=== PATIENT | female | born 1945 | race Caucasian/White ===

== ENCOUNTER 2021-03-26 14:03 | Outpatient (REF) | payer MEDICARE, SELFPAY ==
--- NOTE | ~2021-03-26 | MM_ITS ---
EXAMINATION: BONE DENSITOMETRY CLINICAL INDICATION: Screening for osteoporosis. COMPARISON: Baseline BD dated 09/09/2017. Radiographs lumbar spine 03/13/2020. TECHNIQUE: Using a [email or web address] DXA System (software version: 13.1) manufactured by [employer], dual-energy x-ray absorptiometry was performed of the lumbar spine and left hip. The images are of good technical quality. Summary results are attached. FINDINGS: AP SPINE L2-L4 (excluding L1): The data of L1-L4 has been changed to exclude the L1 vertebral body, because degenerative changes at this level may cause overestimation of lumbar spine density. Current: BMD 0.878 g/cm2, Z-score -0.7, T-score -2.7, osteoporosis, 8.5% decrease from baseline (<5% change is not significant). Baseline: BMD 0.960 g/cm2. LEFT FEMUR, NECK: Current: BMD 0.753 g/cm2, Z-score 0.1, T-score -2.1, osteopenia. Baseline: BMD 0.767 g/cm2. LEFT FEMUR, TOTAL: Current: BMD 0.793 g/cm2, Z-score 0.3, T-score -1.7, osteopenia, 4.0% decrease from baseline (<5% change is not significant). Baseline: BMD 0.826 g/cm2. IDENTIFIED RISK FACTORS: Rheumatoid arthritis, osteoporosis, menopause, hysterectomy. HISTORY OF FRACTURE: None listed. MEDICATIONS: Calcium supplements or multivitamin, vitamin D. MM/XR DEXA axial skeleton IMPRESSION: 1. DIAGNOSIS: Osteoporosis based on the lowest T-score value of -2.7 in the lumbar spine applying World Health Organization criteria. 2. 10-YEAR FRACTURE RISK PREDICTION, FRAX: Major osteoporotic fracture (clinical spine, forearm, hip or shoulder) 18.9%. Hip fracture 6.1%. 3. Treatment Recommendations: NOF guidelines recommend consideration for treatment in postmenopausal women and men age 50 and older presenting with the following: -A hip or vertebral (clinical or morphometric) fracture. -T-score less than or equal to -2.5 at the femoral neck or spine after appropriate evaluation to exclude secondary causes. -Low bone mass at the hip or spine and a 10-year fracture probability by FRAX of greater than or equal to 3% for hip fracture or greater than or equal to 20% for major osteoporotic fracture based on the [place] adapted WHO algorithm. 4. Other Recommendations: All treatment decisions require clinical judgment and consideration of individual patient factors, including patient preferences, comorbidities, previous drug use, risk factors not captured in the FRAX model (e.g. frailty, falls, vitamin D deficiency, increased bone turnover, interval significant decline in bone density) and possible under or overestimation of fracture risk by FRAX. Additional medical evaluation for secondary cause of low bone mineral density may be appropriate. FUTURE SCAN RECOMMENDATION: People with diagnosed cases of osteoporosis or at high risk for fracture should have regular bone mineral density tests. For patients eligible for Medicare, routine testing is allowed once every 2 years. The testing frequency can be increased to one year for patients who have rapidly progressing disease, those who are receiving or discontinuing medical therapy to restore bone mass, or have additional risk factors.
== END 2021-03-26 14:04 | disposition home or self-care (01) ==
LOC: HO.MAMMO 14:03
PROVIDERS: Visit Provider Internal Medicine Rheumatology
DX: Z13.820 Encounter for screening for osteoporosis (principal); M81.0 Age-related osteoporosis without current pathological fracture; M06.9 Rheumatoid arthritis, unspecified; Z78.0 Asymptomatic menopausal state; Z98.890 Other specified postprocedural states
CPT/HCPCS: 77080

== ENCOUNTER 2021-05-08 07:39 | Outpatient (REF) | payer MEDICARE, SELFPAY ==
--- NOTE | ~2021-05-08 | MM_ITS ---
EXAMINATION: MM SCREENING DIGITAL BREAST TOMOSYNTHESIS, BILATERAL CLINICAL INFORMATION: Screening. Asymptomatic. The lifetime risk of breast cancer based on the Tyrer-Cuzick Model is 3%. COMPARISON: Mammography: 05/02/2020, 12/22/2018, 12/02/2017 TECHNIQUE: Digital breast tomosynthesis is performed in both the craniocaudal and mediolateral oblique views along with computer-aided detection (CAD). Synthesized 2D images are generated from the tomosynthesis. Additional left exaggerated CC view is provided. FINDINGS: There are scattered areas of fibroglandular density (ACR BI-RADS breast composition Category b). There are no significant masses, abnormal calcifications, or other abnormalities. There is a dermal lesion again seen overlying the posterior lateral left breast. There are benign bilateral vascular calcifications. The axilla are unremarkable. MM/MM tomosynthesis screening BI IMPRESSION: No mammographic evidence of malignancy. ASSESSMENT: BI-RADS 2: Benign RECOMMENDATION: Routine annual mammography screening. This patient's information was entered into a reminder system with a target due date for their next mammogram.
== END 2021-05-08 07:40 | disposition home or self-care (01) ==
LOC: HO.MAMMO 07:39
PROVIDERS: PCP Internal Medicine; Visit Provider Internal Medicine
DX: Z12.31 Encounter for screening mammogram for malignant neoplasm of breast (principal)
CPT/HCPCS: 77063; 77067

== ENCOUNTER 2022-05-11 07:46 | Outpatient (REF) | payer MEDICARE, SELFPAY ==
--- NOTE | ~2022-05-11 | MM_ITS ---
EXAMINATION: MM SCREENING DIGITAL BREAST TOMOSYNTHESIS, BILATERAL CLINICAL INFORMATION: Screening. Asymptomatic. The lifetime risk of breast cancer based on the Tyrer-Cuzick Model is 3%. COMPARISON: Mammography: 05/08/2021, 05/02/2020, 12/22/2018 TECHNIQUE: Digital breast tomosynthesis is performed in both the craniocaudal and mediolateral oblique views along with computer-aided detection (CAD). Synthesized 2D images are generated from the tomosynthesis. FINDINGS: There are scattered areas of fibroglandular density (ACR BI-RADS breast composition Category b). There are no significant masses, abnormal calcifications, or other abnormalities. Parenchymal pattern is similar to prior studies. MM/MM tomosynthesis screening BI IMPRESSION: No mammographic evidence of malignancy. ASSESSMENT: BI-RADS 1: Negative RECOMMENDATION: Routine annual mammography screening. This patient's information was entered into a reminder system with a target due date for their next mammogram.
== END 2022-05-11 07:47 | disposition home or self-care (01) ==
LOC: HO.MAMMO 07:46
PROVIDERS: PCP Internal Medicine; Visit Provider Internal Medicine
DX: Z12.31 Encounter for screening mammogram for malignant neoplasm of breast (principal)
CPT/HCPCS: 77063; 77067

== ENCOUNTER 2022-10-14 15:15 | Outpatient (REF) | payer MEDICARE, SELFPAY ==
[2022-10-14 18:06] LABS: Appearance Urine Clear; Color Urine Yellow; Glucose Urine UA Negative (Negative); Leukocyte Esterase Urine Small (1+) (Negative); Nitrite Urine Negative (Negative); PH 5.5 (5.0-9.0); UMIC TRIGGER UACC YES; Urine Blood Negative (Negative); Urine Ketones Negative (Negative); Urine Protein Negative (Neg-Trace)
[2022-10-14 18:49] LABS: Bacteria Urine None Seen (None Seen); Hyaline Casts Urine 0-2 /LPF (0-2); RBC Urine 0-2 /HPF (0-2); UACC Culture Trigger YES; WBC Urine 0-5 /HPF (0-5)
== END 2022-10-14 15:16 | disposition home or self-care (01) ==
LOC: HO.MANLDS 15:15
PROVIDERS: Visit Provider Internal Medicine
DX: N39.0 Urinary tract infection, site not specified (principal)
CPT/HCPCS: 81001; 87086

== ENCOUNTER 2023-05-17 07:41 | Outpatient (REF) | payer MEDICARE, SELFPAY ==
--- NOTE | ~2023-05-17 | MM_ITS ---
EXAMINATION: MM SCREENING DIGITAL BREAST TOMOSYNTHESIS, BILATERAL CLINICAL INFORMATION: Screening. Asymptomatic. The lifetime risk of breast cancer based on the Tyrer-Cuzick Model is 2.2%. COMPARISON: Mammography: 05/11/2022, and dating back to 2013. TECHNIQUE: Digital breast tomosynthesis is performed in both the craniocaudal and mediolateral oblique views along with computer-aided detection (CAD). Synthesized 2D images are generated from the tomosynthesis. In addition, bilateral 3-D full-field digital CC nipple in profile views were performed. FINDINGS: There are scattered areas of fibroglandular density (ACR BI-RADS breast composition Category b). There are no suspicious masses, suspicious grouped calcifications, or areas of architectural distortion. The parenchymal pattern is stable from prior exams. There are benign vascular calcifications in both breasts. There is a stable skin lesion in the far lateral posterior left breast. MM/MM tomosynthesis screening BI IMPRESSION: No mammographic evidence of malignancy. Stable benign findings. ASSESSMENT: BI-RADS BI-RADS 2 - Benign Findings RECOMMENDATION: Routine annual mammography screening. 1 year F/U This examination should not preclude the clinical evaluation of a suspicious palpable abnormality. This patient's information was entered into a reminder system with a target due date for their next mammogram.
== END 2023-05-17 07:42 | disposition home or self-care (01) ==
LOC: HO.MAMMO 07:41
PROVIDERS: PCP Internal Medicine; Visit Provider Internal Medicine
DX: Z12.31 Encounter for screening mammogram for malignant neoplasm of breast (principal)
CPT/HCPCS: 77063; 77067

== ENCOUNTER → 2023-05-17 08:15 | Outpatient (BNV) | payer MEDICARE, SELFPAY | PROVIDERS: PCP Internal Medicine; Visit Provider Radiology Diagnostic Radiology | DX: Z12.31 Encounter for screening mammogram for malignant neoplasm of breast (principal) | CPT/HCPCS: 77063; 77067 ==

== ENCOUNTER 2023-06-07 10:53 | Outpatient (REF) | payer MEDICARE, SELFPAY ==
[2023-06-07 12:56] LABS: MANUAL DIFF FLAG NO
[2023-06-07 13:30] LABS: Alanine Aminotransferase 13 U/L (0-31); Albumin Level 4.5 g/dL (3.5-5.0); Alkaline Phosphatase 71 U/L (39-117); Anion Gap 14 (12-20); Aspartate Amino Transferase 23 U/L (5-31); Bilirubin Total 0.3 mg/dL (0.0-1.0); Blood Urea Nitrogen 17 mg/dL (9-16); Calcium 9.7 mg/dL (8.4-10.2); Carbon Dioxide 29 mmol/L (22-29); Chloride 102 mmol/L (96-108); Estimated Glomerular Filt Rate > 60; Glucose Random 102 mg/dL (60-115); Potassium 4.8 mmol/L (3.3-5.1); Sodium 140 mmol/L (135-145)
[2023-06-07 13:55] LABS: Folate 19.4 ng/mL (> or = 4.0); Vitamin B12 966 pg/mL (200-900)
[2023-06-07 13:56] LABS: Basophils Absolute Auto 0.1 X10*3/uL (0.0-0.2); Basophils Percent Auto 0.7 % (0-2); Eosinophils Absolute Auto 0.1 X10*3/uL (0.0-0.4); Eosinophils Percent Auto 1.8 % (0-4); Hemoglobin 12.9 g/dl (12.0-16.0); Imm Gran Abs Auto 0.02 X10*3/uL (0.00-0.03); Imm Gran Pct Auto 0.3 % (0.0-0.4); Lymphocytes Absolute Auto 2.5 X10*3/uL (1.2-4.9); Lymphocytes Percent Auto 34.4 % (20-40); Mean Corpuscular HGB Conc 33.9 g/dl (31.0-35.0); Mean Corpuscular Hemoglobin 33.1 pg (27.0-33.0); Mean Corpuscular Volume 97.4 fL (80.0-98.0); Mean Platelet Volume 8.9 fL (9.4-12.3); Monocytes Absolute Auto 0.8 X10*3/uL (0.1-1.2); Monocytes Percent Auto 10.8 % (2-11); Neutrophils Absolute Auto 3.7 x10*3/uL (2.0-8.3); Platelet Count 356 X10*3/uL (160-400); Red Cell Distribution Width 12.5 % (11.0-16.0); White Blood Count 7.2 X10*3/uL (4.8-10.8)
== END 2023-06-07 10:54 | disposition home or self-care (01) ==
LOC: HO.MANLDS 10:53
PROVIDERS: Visit Provider Internal Medicine
DX: I10 Essential (primary) hypertension (principal); Z76.89 Persons encountering health services in other specified circumstances
CPT/HCPCS: 36415; 80053; 82607; 82746; 85025

== ENCOUNTER 2023-12-01 07:53 | Outpatient (REF) | payer MEDICARE, SELFPAY ==
[2023-12-01 13:49] LABS: Rheumatoid Factor < 13.0 IU/mL (<15.0)
[2023-12-01 13:58] LABS: C Reactive Protein < 0.10 mg/dL (< or = 0.50); Calcium 9.2 mg/dL (8.4-10.2); Uric Acid 4.7 mg/dL (2.4-5.7)
[2023-12-01 14:14] LABS: Free T4 (Free Thyroxine) 1.11 ng/dL (0.71-1.85); Thyroid Stimulating Hormone 1.09 uIU/mL (0.32-4.0)
[2023-12-01 14:22] LABS: Erythrocyte Sedimentation Rate 10 MM/HR (0-20)
[2023-12-07 12:29] LABS: ANA Pattern 2 Nuclear, Homogeneous; ANA Titer 2 1:40 titer; Anti Nuclear Antibody Pattern Nuclear, Nucleolar; Anti Nuclear Antibody Screen POSITIVE (NEGATIVE); Anti Nuclear Antibody Titer 1:40 titer
== END 2023-12-01 07:54 | disposition home or self-care (01) ==
LOC: HO.MANLDS 07:53
PROVIDERS: Visit Provider Physician Assistant
DX: M35.3 Polymyalgia rheumatica (principal); M25.59 Pain in other specified joint
CPT/HCPCS: 36415; 82310; 82550; 83970; 84439; 84443; 84550; 85652; 86038; 86039; 86140; 86431

== ENCOUNTER 2024-01-03 08:18 | Outpatient (REF) | payer MEDICARE, SELFPAY ==
[2024-01-03 13:37] LABS: MANUAL DIFF FLAG NO
[2024-01-03 13:43] LABS: Basophils Absolute Auto 0.1 X10*3/uL (0.0-0.2); Basophils Percent Auto 0.8 % (0-2); Eosinophils Absolute Auto 0.1 X10*3/uL (0.0-0.4); Eosinophils Percent Auto 1.1 % (0-4); Hematocrit 37.9 % (37.0-47.0); Hemoglobin 12.5 g/dl (12.0-16.0); Imm Gran Abs Auto 0.03 X10*3/uL (0.00-0.03); Imm Gran Pct Auto 0.3 % (0.0-0.4); Lymphocytes Percent Auto 21.5 % (20-40); Mean Corpuscular Hemoglobin 33.6 pg (27.0-33.0); Mean Corpuscular Volume 101.9 fL (80.0-98.0); Mean Platelet Volume 9.4 fL (9.4-12.3); Monocytes Absolute Auto 0.8 X10*3/uL (0.1-1.2); Monocytes Percent Auto 8.8 % (2-11); Neutrophils Absolute Auto 6.2 x10*3/uL (2.0-8.3); Neutrophils Percent Auto 67.5 % (45-73); Platelet Count 339 X10*3/uL (160-400); Red Blood Count 3.72 X10*6/uL (4.20-5.50); Red Cell Distribution Width 12.3 % (11.0-16.0); White Blood Count 9.2 X10*3/uL (4.8-10.8)
[2024-01-03 14:24] LABS: Erythrocyte Sedimentation Rate 28 MM/HR (0-20)
[2024-01-03 14:25] LABS: Rheumatoid Factor < 13.0 IU/mL (<15.0)
[2024-01-03 14:39] LABS: Alanine Aminotransferase 13 U/L (0-31); Albumin Level 4.4 g/dL (3.5-5.0); Alkaline Phosphatase 75 U/L (39-117); Anion Gap 11 (12-20); Aspartate Amino Transferase 24 U/L (5-31); Bilirubin Total 0.4 mg/dL (0.0-1.0); Blood Urea Nitrogen 21 mg/dL (9-16); C Reactive Protein 0.39 mg/dL (< or = 0.50); Calcium 9.9 mg/dL (8.4-10.2); Carbon Dioxide 30 mmol/L (22-29); Chloride 103 mmol/L (96-108); Estimated Glomerular Filt Rate > 60; Glucose Random 86 mg/dL (60-115); Potassium 4.9 mmol/L (3.3-5.1); Sodium 139 mmol/L (135-145); Total Protein 7.8 g/dL (6.5-8.0)
[2024-01-05 13:09] LABS: Anti Nuclear Antibody Screen NEGATIVE (NEGATIVE)
== END 2024-01-03 08:19 | disposition home or self-care (01) ==
LOC: HO.MANLDS 08:18
PROVIDERS: Visit Provider Physician Assistant
DX: M35.3 Polymyalgia rheumatica (principal)
CPT/HCPCS: 36415; 80053; 85025; 85652; 86038; 86140; 86431

== ENCOUNTER 2024-03-14 15:20 | Outpatient (REF) | payer MEDICARE, SELFPAY ==
[2024-03-14 17:28] LABS: Basophils Absolute Auto 0.1 X10*3/uL (0.0-0.2); Basophils Percent Auto 0.5 % (0-2); Eosinophils Absolute Auto 0.1 X10*3/uL (0.0-0.4); Eosinophils Percent Auto 0.8 % (0-4); Hematocrit 33.7 % (37.0-47.0); Hemoglobin 11.6 g/dl (12.0-16.0); Imm Gran Abs Auto 0.06 X10*3/uL (0.00-0.03); Imm Gran Pct Auto 0.6 % (0.0-0.4); Lymphocytes Absolute Auto 1.8 X10*3/uL (1.2-4.9); Lymphocytes Percent Auto 16.3 % (20-40); MANUAL DIFF FLAG SCAN; Mean Corpuscular HGB Conc 34.4 g/dl (31.0-35.0); Mean Corpuscular Hemoglobin 33.4 pg (27.0-33.0); Mean Corpuscular Volume 97.1 fL (80.0-98.0); Monocytes Absolute Auto 1.6 X10*3/uL (0.1-1.2); Monocytes Percent Auto 15.1 % (2-11); Neutrophils Absolute Auto 7.1 x10*3/uL (2.0-8.3); Neutrophils Percent Auto 66.7 % (45-73); Platelet Count 367 X10*3/uL (160-400); Red Blood Count 3.47 X10*6/uL (4.20-5.50); Red Cell Distribution Width 11.8 % (11.0-16.0); SCAN SMEAR FLAG 1; White Blood Count 10.7 X10*3/uL (4.8-10.8)
[2024-03-14 17:32] LABS: C Reactive Protein 17.81 mg/dL (< or = 0.50)
[2024-03-14 18:18] LABS: SLIDE REVIEW VERIFIED
[2024-03-15 22:14] LABS: Lyme Abs Screen <0.90 index
[2024-03-23 10:29] LABS: A. Phagocytophilum Ab IgG <1:64 (<1:64); A. Phagocytophilum Ab IgM <1:20 (<1:20); E. Chaffeensis Ab IgG <1:64 (<1:64); E. Chaffeensis Ab IgM <1:20 (<1:20)
== END 2024-03-14 15:21 | disposition home or self-care (01) ==
LOC: HO.MANLDS 15:20
PROVIDERS: Visit Provider Physician Assistant
DX: T14.8XXA Other injury of unspecified body region, initial encounter (principal); W57.XXXA Bitten or stung by nonvenomous insect and other nonvenomous arthropods, initial encounter; X58.XXXA Exposure to other specified factors, initial encounter; Y93.9 Activity, unspecified; Y92.9 Unspecified place or not applicable; Y99.9 Unspecified external cause status
CPT/HCPCS: 36415; 85025; 86140; 86617; 86618; 86666

== ENCOUNTER 2025-01-09 07:41 | Outpatient (REF) | payer MEDICARE, SELFPAY ==
--- NOTE | ~2025-01-09 | MM_ITS ---
EXAMINATION: DXA BONE DENSITY AXIAL HISTORY: Estrogen deficiency TECHNIQUE: Wishberg Dual energy absorptiometry (DEXA) of the lumbar spine, total left hip, and femoral neck was performed. COMPARISON: Comparison is made with the prior examination dated 03/26/2021. FINDINGS: The bone mineral density of the lumbar spine is 1.106 with a T-score of -1.5, and a Z-score of 0.5. This is indicative of osteopenia. This represents a BMD change of 15.7% compared to the prior exam. This is statistically significant. The bone mineral density of the left total hip is 0.788 with a T-score of -1.7, and a Z-score of 0.5. This is indicative of osteopenia. This represents a BMD change of -0.6% compared to the prior exam. This is not statistically significant. The bone mineral density of the left femoral neck is 0.695 with a T-score of -2.5, and a Z-score of -0.1. This is indicative of osteoporosis. This represents a BMD change of -7.7% compared to the prior exam. FRACTURE RISK: The FRAX index suggests a ten year probability of major osteoporotic fracture of 23.5%, and of hip fracture 9.4%. MM/XR DEXA axial skeleton IMPRESSION: Based on bone mineral density, and according to World Health Organization (WHO) criteria, the diagnosis is consistent with osteoporosis. All bone density values are in grams per centimeter squared (g/cm2). Statistically, 68% of repeat scans fall within 1 SD (+/- 0.010 g/cm2 for AP spine L1-L4) and 1 SD (+/- 0.012 g/cm2 for femur total) FRAX is a trademark of the [employer], a World Health Organization (WHO) Collaborating Center. Electronically signed by: Nico Manzano MD 01/09/2025 08:44 AM EDT
--- OUTSIDE RECORDS SUMMARY | 2025-01-09 07:46 | XMS_ITS | Data Portability ---
Author Organization [facility] Address [address] [place] [address] Assessment Encounter Date Assessment Date Assessment LastModified by Organization Details LastModified Time 10/13/2024 10/13/2024 [id number] [place] [id number] (PRIVACY MANAGER) MDM MODERATE MUST MEET 2 OUT OF 3 ELEMENTS: PROBLEMS, DATA OR RISK ELEMENT 1: PROBLEMS ADDRESSED 1 OR MORE CHRONIC ILLNESS WITH EXACERBATION OR 2 OR MORE STABLE CHRONIC ILLNESSES OR 1 UNDIAGNOSED NEW PROBLEM OR 1 ACUTE ILLNESS W/SYMPTOMS OR 1 ACUTE COMPLICATED INJURY ELEMENT 2: DATA MUST MEET 1 OF 3 CATEGORIES CATEGORY 1: REVIEW OF PRIOR EXTERNAL NOTES, REVIEW OF RESULTS, ORDERING OF EACH TEST, ASSESSMENT REQUIRING INDEPENDENT HISTORIAN OR CATEGORY 2: INDEPENDENT INTERPRETATION OF TESTS BY ANOTHER PHYSICIAN OR SPECIALIST OR CATEGORY 3: DISCUSSION OF MGT OR TEST INTERPRETATION W/EXTERNAL PHYSICIAN OR SPECIALIST ELEMENT 3: RISK RISK OF COMPLICATIONS AND/OR MORBIDITY OR MORTALITY OF PATIENT MANAGEMENT PROVIDER MUST THOROUGHLY DOCUMENT EACH ELEMENT THAT IS COVERED Not available 10/13/2024 09:46:31 Plan of Treatment Reminders Order Date Submit Date Provider Last Modified By Organization Details Last Modified Time Details Appointments Nurse Visit 15 2024 09:[facility]A [facility] Not available Not available Not available Lab lipid panel, blood 2024 025 [facility], [address] [place] [address], [place], [address], 10/20/2024 08:19:55 CMP, serum or plasma 2024 025 YOANNA [facility], [place], [address], 10/16/2024 14:09:25 CBC w/ auto diff 2024 025 [facility], [place], [address], 10/13/2024 09:48:06 ESR (erythroc yte sedimenta tion rate), blood 2024 025 [facility], [place], [address], 10/13/2024 09:49:25 C-reactiv e protein, quantitat rohit, serum or plasma 2024 025 [facility], [place], [address], 10/13/2024 09:49:26 Referral None recorded. Procedures None recorded. Surgeries None recorded. Imaging None recorded. Medication Orders Vitamin B-12 1,000 mcg/mL injection solution [address]2024, [address] [place] [address], [address], 12/11/2024 10:53:09 Vitamin B-12 1,000 mcg/mL injection solution [address]Pharm[facility] #2024, [address] [place] [address], [address], 11/15/2024 09:24:46 cyanocoba beba (vit B-12) 1,000 mcg/mL injection solution 2024 025 [email or web address], [address] [place] [address], [address], 10/25/2024 10:06:36 cyanocoba beba (vit B-12) 1,000 mcg/mL injection solution [address] #[address]24, [address] [place] [address], [address], 10/06/2024 10:39:06 Patient TargetsNo targets recorded. Patient InstructionsNo instructions recorded. Reason for Referral None Reported. Results Created Date Observation Date Name Description Value Unit Range Abnormal Flag Note LastModifiedBy Organization Detail LastModifiedTime 12/12/19 25 12/11/2024 XR, hip, unila teral , 2 or 3 view No observ ation record ed. [email or web address] [address], [address], 12/13/2024 11:29:40 Result Notes None recorded. Problems Name Problem SNOMED Code Status Onset Date Resolution Date Notes Provider Name and Address Organization Details Recorded Time Irritable bowel syndrome 82508594 Active 2017 Not Available [facility] 20:36:58 Thyroid nodule 042022998 Active 2017 Not Available [facility] 20:36:58 Lyme disease 94476340 Active 02/2012 , 03/2009 [facility] Available [facility]58 Fibromyal amanda 510121834 Active 2017 Not Available [facility] 20:36:58 Gastroeso phageal reflux disease 065243736 Active 2017 Not Available [facility] 20:36:58 Blanchard's esophagus 569162070 Active 2017 Not Available [facility] 20:36:58 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 63990262 Active 2017 Not Available [facility] 20:36:58 Hyperchol esterolem ia 20713838 Active 2017 Not Available [facility] 20:36:58 B12 deficienc y monitorin g status 651521999 Active 2017 Not Available [facility] 20:36:58 Osteoporo sis 90327283 Active 2020 Not Available [facility] 20:36:58 Right lower quadrant pain 904806155 Active 2021 Jay Walker DO [address] [place] [address], [address], [facility] 2 11:28:19 Right upper quadrant pain 544753750 Active 2021 Jay Walker DO [address] [place] [address], [address], [facility] 2 10:09:50 Multiple joint pain 68749518 Active 2021 Jay Luo Aaron, DO [address] [place] [address], [address], [facility] 2 13:18:40 Ataxia 66372487 Active 2021 Jay Luo Aaron, DO [address] [place] [address], [address], [facility] 2 10:54:34 Pain of right shoulder joint 815127357057 27040 Active 2021 Jay Walker DO [address] [place] [address], [address], [facility] 2 10:06:55 Acute urinary tract infection 766020036 Active 2022 Jay Walker, DO [address] [place] [address], [address], [facility] 3 14:51:10 Osteoarth ritis 692505282 Active 2022 STEPH MALIK [address] [place] [address], [address], [facility] 3 12:08:52 Muscle pain 71834957 Active 2022 Jay Walker DO [address] [place] [address], [address], [facility] 3 14:16:45 Hypertens rohit disorder 30819948 Active 2022 Jay Walker [address], [address], [facility] 3 14:20:24 Parapares is 2587618 Active 2023 Jay Walker [address], [address], [facility] 4 14:59:13 Fatigue 17672033 Active 2023 Jay Walker, DO [address] [place] [address], [address], [facility] 4 09:14:13 Polymyalg ia rheumatic a 04616791 Active 2023 Jay Walker, DO [address] [place] [address], [address], [facility] 4 16:42:37 Fall Active 2023 STEPH MALIK [address] [place] [address], [address], [facility] 4 16:18:43 Wound of skin 340553995 Active 2023 STEPH MALIK [address] [place] [address], [address], [facility] 4 09:57:58 Celluliti s 058055963 Active 2023 Jay Walker, DO [address] [place] [address], [address], [facility] 4 09:31:50 Recurrent falls 689467058 Active 2023 STEPH MALIK [address] [place] [address], [address], [facility] 4 15:06:27 Abnormal gait 90372162 Active 2023 STEPH MALIK [address] [place] [address], [address], [facility] 4 10:35:32 Muscle weakness 58494615 Active 2023 STEPH MALIK [address] [place] [address], [address], [facility] 4 15:43:52 Tick bite 83039213 Active 2023 Jay Walker, DO [address] [place] [address], [address], [facility] 4 10:01:05 Pain in right hip joint 668989277074 102 Active 2024 Jay Walker DO [address] [place] [address], [address], [facility] 5 10:01:20 Degenerat ion of lumbar intervert ebral disc 57064610 Active 2017 Not Available [facility] 20:36:58 Pruritic rash 78824734 Active 2017 Not Available [facility] 20:36:58 Problem Notes None recorded. Procedures Surgical History Date Name Laterality Status Provider Name and Address Organization Details Recorded Time 024 Corticosteroid Injection completed Jay Walker DO [address] [place] [address], [address], [facility] 02/09/2024 09:30:34 023 Corticosteroid Injection completed Jay Walker DO [address] [place] [address], [address], [facility] 10/14/2022 14:15:02 019 Removal of Foreign Body completed Jay Walker DO [address] [place] [address], [address], [facility] 03/01/2019 13:39:00 Imaging Results Imaging Date Name Status LastModified by Organiz ation Details LastModified Time 12/11/2024 XR, hip, unilateral , 2 or 3 view completed [email or web address] [address], [address], 12/13/2024 11:29:40 Procedure Notes None recorded. Medical Equipment None Reported. Allergies Allergen ID Allergen Name Allergen Category Reaction Reaction Severity Criticality Documentation Date Start Date Code Code System Note Provider Name and Address Organization Details Recorded Time 308 Iodinated contrast media (substanc e) medicatio n hives severe Not available 12/14/2017 08231 2003 SNOMED Ama Wing [facility] 8 11:47:51 309 Product containin g 3-hydroxy -3-methyl glutaryl- coenzyme A reductase inhibitor (product) medicatio n myalgias (muscle pain) Not available Not available 12/14/2017 30171 009 SNOMED Ama Maciej [facility] 8 11:48:01 3729 nitrofura ntoin medicatio n diarrhea Not available Not available 11/24/2019 7454 RxNorm SAI [facility] [address] [place], [address], [facility] 0 10:45:12 5245 Fosamax medicatio n nausea severe Not available 09/30/2021 46893 5 RxNorm Jay Walker, DO [address] [place], [address], [facility] 1 09:57:39 Medications Name Sig Start Date Stop Date Status Note LastModified by Organization Details LastModified Time celecoxib 200 mg capsule TAKE 1 CAPSULE BY MOUTH EVERY DAY 01/13 completed Not Available Not Available Not Available amoxicillin 500 mg capsule TAKE 1 CAPSULE BY MOUTH 3 TIMES A DAY UNTIL GONE 03/29 completed Not Available Not Available Not Available silver sulfadiazin e 1 % topical cream APPLY A- 10/26-OF AN INCH (1.5 MM) THICK LAYER TO ENTIRE BURN AREA BY TOPICALRO [place] 2 TIMES PER DAY active Not Available Not Available No t Available prednisone 10 mg tablet TAKE 1 TABLET BY MOUTH EVERY DAY FOR 14 DAYS active Not Available Not Available No t Available Vitamin B-12 1,000 mcg/mL injection solution Inject 1 mL every month by intramusc ular route. 2024 active Not Available Not Available Not Avai lable doxycycline hyclate 100 mg capsule TAKE 1 CAPSULE BY MOUTH TWICE A DAY FOR 10 DAYS active Not Available Not Available No t Available nabumetone 750 mg tablet TAKE 1 TABLET BY MOUTH TWICE A DAY 03/26 completed Not Available Not Available Not Available clindamycin HCl 300 mg capsule TAKE 1 CAPSULE BY MOUTH THREE TIMES DAILY UNTIL GONE 01/20 completed Not Available Not Available Not Available azithromyci n 250 mg tablet TAKE 2 TABLETS (500 MG) BY ORAL ROUTE ONCE DAILY FOR 1 DAY THEN 1 TABLET (250 MG) BY ORAL ROUTE ONCE DAILY FOR 4 DAYS 04/06 completed Not Available Not Available Not Available cefpodoxime 100 mg tablet 11/12 completed Not Available Not Available Not Available pravastatin 40 mg tablet Take 1 tablet every day by oral route. 11/30 completed Not Available Not Available Not Available fluconazole 150 mg tablet 08/28 completed Not Available Not Available Not Available valacyclovi r 1 gram tablet 12/27 completed Not Available Not Available Not Available ranitidine 300 mg tablet Take 1 tablet every day by oral route at bedtime. 03/06 completed Not Available Not Available Not Available famotidine 40 mg tablet TAKE 1 TABLET BY MOUTH AT BEDTIME 08/06 completed Not Available Not Available Not Available prednisone 20 mg tablet TAKE 2 TABLETS BY MOUTH EVERY DAY FOR 10 DAYS 12/28 completed Not Available Not Available Not Available alendronate 70 mg tablet 01/09 completed Not Available Not Available Not Available clobetasol 0.05 % topical cream APPLY A THIN LAYER TO THE AFFECTED AREA BY MOUTH 2 TIMES A DAY 04/06 completed Not Available Not Available Not Available clindamycin HCl 150 mg capsule 12/27 completed Not Available Not Available Not Available ciprofloxac in 250 mg tablet 03/29 completed Not Available Not Available Not Available sulfamethox azole 800 mg-trimetho prim 160 mg tablet TAKE 1 TABLET BY MOUTH TWICE DAILY FOR 3 DAYS active Not Available Not Available No t Available tramadol 50 mg tablet TAKE 1 TABLET BY MOUTH EVERY 8 HOURS NEEDED FOR 10 DAYS active Not Available Not Available No t Available triamcinolo ne acetonide 0.1 % topical cream 08/23 completed Not Available Not Available Not Available prednisolon e acetate 1 % eye drops,suspe nsion SHAKE LIQUID AND INSTILL 1 DROP IN RIGHT EYE FOUR TIMES DAILY active Not Available Not Available No t Available doxycycline monohydrate 100 mg capsule TAKE 2 CAPSULES BY MOUTH ONCE FOR 1 DOSE WITH FOOD. USE RESERVE PILLS FOR FUTURE TICK BITES DIRECTED active Not Available Not Available No t Available cephalexin 500 mg capsule active Not Available Not Available Not Available omeprazole 20 mg capsule,del ayed release 03/02 completed Not Available Not Available Not Available halobetasol propionate 0.05 % topical cream apply thin layer to the affected area twice a day 04/06 completed Not Available Not Available Not Available lisinopril 5 mg tablet 03/02 completed Not Available Not Available Not Available mupirocin 2 % topical ointment APPLY A SMALL AMOUNT TO AFFECTED AREA 3 TIMES A DAY active Not Available Not Available No t Available ibuprofen 600 mg tablet TAKE 1 TABLET BY MOUTH EVERY 6 HOURS NEEDED FOR PAIN active Not Available Not Available No t Available cefuroxime axetil 500 mg tablet active Not Available Not Available No t Available levofloxaci n 500 mg tablet 10/24 completed Not Available Not Available Not Available dicyclomine 10 mg capsule TAKE 1 CAPSULE BY MOUTH THREE TIMES DAILY NEEDED active Not Available Not Available No t Available oxycodone 5 mg tablet Take 1 tablet every 4-6 hours by oral route as needed for 14 days. active Not Available Not Available No t Available Oyster Shell Calcium-500 500 mg (as carbonate 1,250 mg) tablet TAKE 1 TABLET BY MOUTH TWICE A DAY WITH MEALS 11/04 completed Not Available Not Available Not Available Vitamin D3 25 mcg (1,000 unit) capsule Take by oral route. active Not Available Not Available No t Available moxifloxaci n 0.5 % eye drops 01/13 completed Not Available Not Available Not Available nitrofurant oin monohydrate /macrocryst als 100 mg capsule 01/10 completed Not Available Not Available Not Available ibandronate 150 mg tablet TAKE 1 TABLET BY MOUTH EVERY MONTH 01/09 completed Not Available Not Available Not Available chlorhexidi ne gluconate 0.12 % mouthwash SWITH WITH 1/2 OUNCE FOR 30 SECONDS AND SPIT TWICE DAILY FOR 1 WEEK 01/20 completed Not Available Not Available Not Available magnesium daily; OTC active Not Available Not Available No t Available Lactaid PRN 01/10 completed Not Available Not Available Not Available Stool Softener PRN 01/10 completed Not Available Not Available Not Available Ilevro 0.3 % eye drops,suspe nsion 06/13 completed Not Available Not Available Not Available Prolensa 0.07 % eye drops 01/13 completed Not Available Not Available Not Available Laxative (bisacodyl) PRN 01/10 completed Not Available Not Available Not Available Phenohytro 16.2 mg-0.1037 mg-0.0194 mg tablet TAKE 1 TABLET BY MOUTH THREE TIMES A DAY NEEDED 03/26 completed Not Available Not Available Not Available Linzess 72 mcg capsule Take 1 capsule every day by oral route for 30 days. 03/26 completed Not Available Not Available Not Available Trelered Ellipta 100 mcg-62.5 mcg-25 mcg powder for inhalation Inhale 1 puff every day by inhalatio n route. active Not Available Not Available No t Available Tylenol 325 mg capsule Take 1 capsule every 8 hours by oral route. 01/10 completed Not Available Not Available Not Available Vitals Date Recorded Body height Body mass index (BMI) Body weight Systolic blood pressure Diastolic blood pressure Provider Name and Address Organization Details Last Updated DateTime 10/13/2024 160.02 cm 24.8 kg/m2 39216.93 g 122 mm[Hg] 78 mm[Hg] Rebecca Keller [facility] 09:37:00 Social History Question Answer Notes LastModified by Organizat ion Details LastModified Time Tobacco Smoking Status [facility] 08:57:36 What Was The Date Of Your Most Recent Tobacco Screening? 10/13/2024 [email or web address] Information not available 10/13/2024 Do You Or Have You Ever Used Any Other Forms Of Tobacco Or Nicotine? No [email or web address] Information not available 11/26/2023 Sex: Unknown Functional Status None recorded. Mental Status None recorded. Family History Nothing Reported. Medical History No medical history recorded. Gynecological HistoryNo gynecological history recorded. Obstetrics History GPAL:G 0 P 0 0 0 0 Immunizations Vaccine Type Date Status Note Provider Nam e and Address Organization Details Recorded Time Influenza, split virus, quadrivalent, preservative 07/03/20 21 completed Ama dobson [facility] 07/04/2021 13:55:17 COVID-19, mRNA, LNP-S, PF, 30 mcg/0.3 mL dose 11/22/19 21 completed Chanda dobson [facility] 08/04/2021 08:33:43 COVID-19, mRNA, LNP-S, PF, 30 mcg/0.3 mL dose 12/14/19 21 completed Chanda dobson [facility] 08/04/2021 08:33:50 COVID-19, mRNA, LNP-S, PF, 30 mcg/0.3 mL dose 08/05/20 21 completed Jay Walker DO [address] [place] [address], [address], [facility] 08/07/2021 08:26:11 Influenza, split virus, quadrivalent, preservative 07/13/20 18 completed Not Available [facility] 05/18/2021 10:18:05 influenza, unspecified formulation 07/31/20 22 completed Jay Walker DO [address] [place] [address], [address], [facility] 08/28/2022 09:26:21 COVID-19, mRNA, LNP-S, PF, 30 mcg/0.3 mL dose 07/12/20 22 completed Chanda [facility] 11/04/2022 08:24:28 SARS-COV-2 (COVID-19) vaccine, UNSPECIFIED 06/22/20 24 completed Jay Walker DO [address] [place] [address], [address], [facility] 06/24/2024 14:15:33 Influenza, split virus, quadrivalent, preservative 07/01/20 19 completed Not Available [facility] 05/18/2021 10:18:05 zoster live 08/05/20 09 completed Not Available [facility] 05/18/2021 10:18:05 Pneumococcal conjugate PCV 13 05/01/20 15 completed Not Available [facility] 05/18/2021 10:18:05 pneumococcal polysaccharide PPV23 07/06/20 17 completed Not Available [facility] 05/18/2021 10:18:05 Influenza, split virus, quadrivalent, preservative 06/18/20 20 completed Not Available [facility] 05/18/2021 10:18:05 Past Encounters Encounter ID Performer Location Encounter Start Date Encounter Closed Date Diagnosis/Indication Diagnosis SNOMED-CT Code Diagnosis ICD10 Code Diagnosis Note [id number] Jay Walker DO [facility] [address] [place] [address],[place] [address] 01/19/2018 09:26:22 01/19/2018 09:39:03 Cobalamin deficiency 448639100 E53.8 [id number] Jay Walker [facility] [address] [place] [address] 02/09/2018 09:10:22 02/09/2018 09:54:58 Cobalamin deficiency 632599897 E53.8 [id number] Jay Walker [facility] [address] [place] [address] 03/02/2018 11:45:30 03/02/2018 12:30:40 Cobalamin deficiency 001819101 E53.8 cont monthly b12 Irritable bowel syndrome 32312247 K58.9 has actually settled down and feeling better after course of abx for uti Blanchard's esophagus 3029 [address] K22.70 feels good taking meds without prob Degenerati on of lumbar intervertebral disc 34846873 M51.36 will be cont with celebrex as it is well tolerated Pruritic rash 34199475 L 28.2 eczema and excoriated will treat with triamcin [id number] Jay Walker [facility] [address] [place] [address] 03/23/2018 09:11:25 03/23/2018 10:52:17 Cobalamin deficiency 393949094 E53.8 cont monthly b12 [id number] Oksana Stewart NP, S [facility] [address] [place] [address] 04/06/2018 08:48:59 04/06/2018 09:54:45 Irritable bowel syndrome 73796080 K58.9 continue dicyclomin e Vitamin B1 2 deficiency (non anemic) 61742350 E53.8 injections Q month, up to date, normal levels in November Gastroesop hageal reflux disease 003740616 K21.9 endoscopy 2016 without evidence barretts. continue abstinence from soda Degenerati on of lumbar intervertebral disc 01216173 M51.36 continue celebrex [id number] [facility] [address] [facility] [place] [address] 04/15/2018 08:56:46 04/15/2018 10:22:32 Cobalamin deficiency 377353403 E53.8 cont monthly b12 [id number] [facility] 179 [facility] [address] 05/11/2018 09:10:01 05/11/2018 16:21:08 Cobalamin deficiency 081493550 E53.8 cont monthly b12 [id number] Oksana Stewart NP, [facility] [address] [facility], [place] [address] 06/01/2018 10:57:18 06/01/2018 12:05:37 Cobalamin deficiency 218395938 E53.8 Impacted cerumen 7639852 6 H61.23 intol. removal Fatigue 66131055 R53.83 f/u 1 week, just had B-12 inj. [id number] Oksana Stewart NP, [address],[place] [address] 06/08/2018 10:37:01 06/08/2018 17:19:36 B12 deficiency monitoring status 958486402 Z76.89 Impacted c erumen of bilateral ears 1619342564 262547 H61.23 will retry removal in 1 week [id number] Oksana Stewart NP, [facility] [address],[facility] [place] [address] 06/20/2018 10:51:46 06/20/2018 11:45:40 Cobalamin deficiency 934543485 E53.8 Dysfunctio n of eustachian tube 26568268 H69.93 improved [id number] Oksana Stewart NP, [address], [place] [address] 07/01/2018 13:35:04 07/01/2018 16:06:51 Acute cystitis 60879434 N30.00 Irritable bowel syndrome 64425764 K58.9 [id number] [facility] [address],[place] [address] 07/11/2018 11:21:06 07/11/2018 15:06:04 Cobalamin deficiency 939233247 E53.8 cont monthly b12 [id number] Jay Walker [facility] [address] [facility],[place] [address] 08/01/2018 10:57:28 08/01/2018 12:32:48 Cobalamin deficiency 978007077 E53.8 cont monthly b12 [id number] Jay Walker [facility] [address] [facility],[place] [address] 08/17/2018 09:13:01 08/17/2018 11:48:20 Cobalamin deficiency 973700986 E53.8 cont monthly b12 [id number] Jay Walker [facility] [address] [facility],[place] [address] 09/07/2018 09:13:03 09/07/2018 11:45:09 Cobalamin deficiency 893973517 E53.8 cont monthly b12 [id number] Oksana Stewart NP, [facility] 179 [facility], ite D [facility] [place] [address] 09/28/2018 08:58:04 09/28/2018 11:50:27 B12 deficiency monitoring status 818021367 Z76.89 Cobalamin deficiency 190 554673 E53.8 Hypercholesterolemia 136 90799 E78.00 Fatigue 09970421 R53.83 usually prior to next B12 [id number] [facility] [address] [facility],[place] [address] 10/19/2018 08:48:30 10/19/2018 12:31:22 Cobalamin deficiency 320858378 E53.8 cont monthly b12 [id number] Oksana Stewart NP, [facility] Internal Medicine [address] [facility],[place] [address] 10/24/2018 13:21:26 10/24/2018 15:27:34 Irritable bowel syndrome 19032310 K58.9 controlled Hypercholesterolemia 136 59980 E78.00 follow, had problems with statins in past Fibromyalgia 008093703 M 79.7 continue with Yoga Gastroesop hageal reflux disease 815865058 K21.9 endoscopy 2017 without evidence barretts. continue abstinence from soda Pre-surger y evaluation 825418368 Z01.818 Cleared, reviewed labs [id number] Jay Walker [facility] [address] [facility], [place] [address] 11/11/2018 09:05:24 11/11/2018 09:51:33 Cobalamin deficiency 976964664 E53.8 cont monthly b12 [id number] Jay Walker DO [address],[place] [address] 11/30/2018 09:39:54 11/30/2018 10:42:38 Irritable bowel syndrome 48275941 K58.9 is very bothersome right now and we discussed and made plans on how to calm her bowels down etc will see her in follow up in near future Hypercholesterolemia 136 00621 E78.00 was unable to tolerate her new statin as it caused severe myalgias and this med was stopped [id number] Jay Walker DO [facility] [address] [facility],[place] [address] 12/05/2018 09:25:05 12/05/2018 11:48:36 Cobalamin deficiency 202086985 E53.8 cont monthly b12 [id number] Jay Walker [facility] [address] [facility], [place] [address] 12/26/2018 11:08:48 12/26/2018 11:45:44 Cobalamin deficiency 168671212 E53.8 cont monthly b12 [id number] Jay Walker DO [facility] [address] [facility], [place] [address] 01/16/2019 11:04:08 01/16/2019 11:53:13 Cobalamin deficiency 658092819 E53.8 cont monthly b12 [id number] Oksana Stewart NP, S [facility] Medicine [address] [facility],[place] [address] 01/30/2019 11:00:53 01/30/2019 11:51:13 Strain of tendon of forearm, wrist, hand 804180950 S56.912D cont ice, rest Ecchymosis 675435875 R58 call if not healing [id number] Jay Walker [facility] [address] [facility],[place] [address] 02/06/2019 10:59:05 02/06/2019 12:19:00 Cobalamin deficiency 183391268 E53.8 cont monthly b12 Jay Walker [facility] [address] [facility],[place] [address] 02/27/2019 09:29:43 02/27/2019 16:11:19 Cobalamin deficiency 144925936 E53.8 cont monthly b12 Tick bite 67208912 S00.9 6XA tick removed less 24 hr [id number] Jay Walker [facility] [address] [facility],[place] [address] 03/20/2019 10:00:48 03/20/2019 10:36:02 Cobalamin deficiency 628589741 E53.8 cont monthly b12 [id number] Jay Walker [facility] [address] [facility],[place] [address] 04/10/2019 09:18:39 04/10/2019 13:27:07 Cobalamin deficiency 343203953 E53.8 cont monthly b12 [id number] [facility] [address] [facility],[place] [address] 05/01/2019 09:01:19 05/01/2019 12:20:39 Cobalamin deficiency 246681748 E53.8 cont monthly b12 [id number] Jay Walker [facility] [address] [facility],[place] [address] 05/12/2019 11:16:16 05/12/2019 11:46:33 Irritable bowel syndrome 50134991 K58.9 is very bothersome right now and we discussed and made plans on how to calm her bowels down etc now will have her start th e fiber on a low dose and gradual increase Degenerati on of lumbar intervertebral disc 95178568 M51.36 will be cont with celebrex as it is well tolerated Gastroesop hageal reflux disease 881764388 K21.9 pretty stable [id number] Jay Walker [facility] [address] [facility],[place] [address] 05/24/2019 09:09:45 05/24/2019 15:35:47 Cobalamin deficiency 844764037 E53.8 cont monthly b12 [id number] January CHU Saha [facility] Medicine [address] [place] [address],[place] [address] 06/13/2019 10:22:39 06/13/2019 11:07:47 Pre-surgery evaluation 082954613 Z01.818 Cataract of right eye 12 88526435 2570773 H26.9 low risk patient clear for procedure no further testing required Irritable bowel syndrome 84974319 K58.9 controlled Gastroesop hageal reflux disease 453435362 K21.9 controlled [id number] Jay Walker [facility] [address] [place] [address],[place] [address] 06/14/2019 09:28:56 06/14/2019 09:56:25 Cobalamin deficiency 547624058 E53.8 cont monthly b12 [id number] Jay Walker [facility] [address] [place] [address],[place] [address] 07/05/2019 09:15:17 07/05/2019 09:28:21 Cobalamin deficiency 785548964 E53.8 cont monthly b12 [id number] Jay Walker [facility] [address] [place] [address],[place] [address] 07/26/2019 09:52:44 07/26/2019 10:15:30 Cobalamin deficiency 647083305 E53.8 cont monthly b12 [id number] Jay Walker [facility] [address] [facility],[place] [address] 08/16/2019 09:01:26 08/16/2019 09:39:27 Cobalamin deficiency 699930037 E53.8 cont monthly b12 [id number] Stormy Saha [facility] Internal Medicine [address] [facility],[place] [address] 08/23/2019 10:01:01 08/23/2019 10:44:15 Acute low back pain 330723990 M54.5 heat/ice rest get xr to r/o compressio n fx NSAIDS Pain of ri ght ankle joint 3598042837 8483137 M25.571 heat/ice/w rap/elevat e use cane xr to r/o fx NSAIDS [id number] Stormy Saha [facility] Internal Medicine [address] [facility],[place] [address] 09/01/2019 11:41:17 09/01/2019 12:31:25 Acute low back pain 973133020 M54.5 take tramadol twice a day as needed then tylenol if still uncomforta ble - call for refill use nsaid only if needed to try to avoid aggravatin g the IBS try to walk around to help healing avoid total bed rest as this can prolong healing process Sprain of right ankle 11 27078483 7021436 S93.401A improving Irritable bowel syndrome 54896552 K58.9 intermitte nt diarrhea and constipati on Lower abdominal pain 545 29924 R10.30 mild, will get cbc an cmp, but likely related IBS advised to call if worsens [id number] Jay Walker [facility] [address] [facility],[place] [address] 09/05/2019 09:13:15 09/05/2019 09:22:23 Cobalamin deficiency 501228858 E53.8 cont monthly b12 [id number] Jay Walker [facility] [address] [facility],[place] [address] 09/27/2019 09:29:40 09/27/2019 09:42:37 Cobalamin deficiency 436585545 E53.8 cont monthly b12 [id number] Jay Walker [facility] [address] [place] [address] 10/02/2019 09:56:37 10/02/2019 10:20:12 B12 deficiency monitoring status 863227109 Z76.89 Much improved and no symptoms currently Irritable bowel syndrome 29907370 K58.9 Has been more lately but otherwise controlled Sprain of right ankle 11 47373744 7813126 S93.401D Much improved - still painful at times No neuro findings Low back strain 01828713 1 S39.012D Much improved - no neuro findings Hypercholesterolemia 136 97903 E78.00 was unable to tolerate her new statin as it caused severe myalgias and this med was stopped [id number] Jay Walker [facility] [address] [place] [address] 10/18/2019 09:26:36 10/18/2019 09:36:04 Cobalamin deficiency 535795164 E53.8 cont monthly b12 [id number] Jay Walker [facility] [address] [place] [address] 11/08/2019 09:11:46 11/08/2019 09:21:51 Cobalamin deficiency 567915097 E53.8 cont monthly b12 [id number] January CHU Saha [facility] [address] [place] [address] 11/24/2019 09:45:38 11/24/2019 11:30:42 Excessive thirst 15675256 R63.1 Acute urin mylene tract infection 152249905 N39.0 she's taken bactrim in the past without issue Diarrhea 14821000 R19.7 has already resolved Right lowe r quadrant pain 040798014 R10.31 she is s/p right appendecto my, and s/p alessia-bso very mild ttp along the pelvic bone [id number] Jay Walker [facility] [address] [place] [address] 11/29/2019 09:11:16 11/29/2019 09:58:59 Cobalamin deficiency 795474604 E53.8 cont monthly b12 [id number] Jay Arangoaly [facility] [address] [facility] [address],[place] [address] 12/22/2019 09:23:03 12/22/2019 09:51:00 Cobalamin deficiency 124404151 E53.8 cont monthly b12 [id number] Jay Walker [facility] [address] [facility] [address],[place] [address] 01/12/2020 09:23:11 01/12/2020 11:33:36 Cobalamin deficiency 116762878 E53.8 cont monthly b12 [id number] Jay Walker [facility] [address] [facility] [address],[place] [address] 02/02/2020 08:57:37 02/02/2020 11:08:27 Cobalamin deficiency 368748816 E53.8 cont monthly b12 [id number] Jay Arangoaly [facility] [address] [facility] [address],[place] [address] 02/23/2020 09:22:03 02/23/2020 09:40:10 Cobalamin deficiency 883433263 E53.8 cont monthly b12 [id number] Jay Walker [facility] [address] [facility] on [address],[place] [address] [facility] [place] [address] 03/06/2020 14:16:21 03/06/2020 15:24:41 Degeneration of lumbar intervertebral disc 66656806 M51.36 wondering if her leg weakness is tied to her LS spine djd Degenerati ve joint disease of shoulder region 02393804 M19.019 sore and has been seen by dr doll and is doing home PT Irritable bowel syndrome 28188523 K58.9 Has been more lately but otherwise controlled Gastroesop hageal reflux disease 130816113 K21.9 pretty stable on famotidine [id number] Jay Luis ASayra Walker [facility] [address] [facility] [address],[place] [address] 03/15/2020 09:31:03 03/15/2020 11:18:11 Cobalamin deficiency 409194439 E53.8 cont monthly b12 [id number] Jay Walker [facility] [address] [facility] [address],[place] [address] 04/05/2020 09:10:11 04/05/2020 12:07:40 Cobalamin deficiency 108710289 E53.8 cont monthly b12 [id number] Jay Walker [facility] [address] [facility] [address],[place] [address] 04/05/2020 09:11:59 04/05/2020 10:44:20 [id number] Jay Walker [facility] [address] [facility] [address],[place] [address] 04/26/2020 09:32:21 04/26/2020 14:20:01 Cobalamin deficiency 262150499 E53.8 cont monthly b12 [id number] Jay Walker [facility] [address] [facility] [address],[place] [address] 05/15/2020 09:13:56 05/15/2020 15:10:23 Cobalamin deficiency 658108619 E53.8 cont monthly b12 [id number] Jay Walker [facility] [address] [facility] [address],[place] [address] 05/17/2020 10:51:43 05/17/2020 12:14:36 Hypercholesterolemia 04008271 E78.00 was unable to tolerate her new statin as it caused severe myalgias and this med was stopped so we shall plan on rechecking nest FBW Gastroesop hageal reflux disease 619944210 K21.9 pretty stable on famotidine and states as long as she is good with diet shes fine Degenerati on of lumbar intervertebral disc 60464643 M51.36 bacl occ sore but is ok overall Blanchard's esophagus 3029 54061 K22.70 feels good taking meds without prob Degenerati ve joint disease of shoulder region 68981978 M19.019 stable and if she needs she will take asa and get relief also told her to cont home PT Recurrent urinary tract infection 050209010 N39.0 [id number] Jay Walker [facility] [address] [facility] [address],[place] [address] 06/07/2020 09:18:34 06/07/2020 11:20:44 Cobalamin deficiency 833804942 E53.8 cont monthly b12 [id number] Jay Walker [facility] [address] [facility] [address],[place] [address] 06/28/2020 09:25:52 06/28/2020 10:37:15 Cobalamin deficiency 408815639 E53.8 cont monthly b12 [id number] Jay Walker [facility] [address] [facility] [address],[place] [address] 07/17/2020 11:21:49 07/17/2020 11:49:56 Cobalamin deficiency 184595308 E53.8 cont monthly b12 [id number] Jay Walker [facility] [address] [facility] [address],[place] [address] 08/07/2020 09:10:28 08/07/2020 10:52:08 Cobalamin deficiency 393885448 E53.8 cont monthly b12 [id number] Jay Walker [facility] [address] [facility] [address],[place] [address] 08/28/2020 09:30:18 08/28/2020 16:10:48 Cobalamin deficiency 911554860 E53.8 cont monthly b12 [id number] Jay Walker [facility] [address] [facility] [address],[place] [address] 09/27/2020 09:35:47 09/27/2020 11:02:56 Cobalamin deficiency 280971264 E53.8 cont monthly b12 [id number] Jay Walker [facility] [address] [facility] [address],[place] [address] 10/29/2020 11:37:51 10/29/2020 12:06:41 Cobalamin deficiency 752468375 E53.8 cont monthly b12 [id number] Jay Walker [facility] [address] [facility] [address],[place] [address] 11/20/2020 09:16:34 11/20/2020 09:26:48 Cobalamin deficiency 912048333 E53.8 cont monthly b12 [id number] Jay Walker DO [facility] [address] [place] [address] 12/11/2020 09:15:28 12/11/2020 14:28:17 Cobalamin deficiency 375405257 E53.8 cont monthly b12 [id number] STEPH MALIK [facility] [address] [place] [address] 12/27/2020 10:33:27 12/27/2020 11:39:33 Diverticulitis 903108349 K57.[address] at [facility] to r/o r/in diverticul itis Irritable bowel syndrome 78896560 K58.9 possible due to immune response from the shot [id number] Jay Walker DO [facility] [address] [facility],[place] [address] 01/01/2021 09:28:36 01/01/2021 15:27:36 Cobalamin deficiency 307902006 E53.8 cont monthly b12 [id number] STEPH MALIK [facility] [address] [place] [address] 01/06/2021 10:10:57 01/06/2021 10:46:36 Constipation 64817362 K59.02 will stop the tramadol for pain as it is constipati ng and start with clean eating, fiber intake and dual miralax and stool softener only until she passes a regular stool can stop the stool softener after that Irritable bowel syndrome 32520967 K58.9 still having significan t constipati on will do as instructed per note and fu on wednesday [id number] Jay Walker DO [facility] [address] [place] [address] 01/10/2021 13:50:33 01/10/2021 14:23:13 Irritable bowel syndrome characterized by constipation 179234336 K58.1 wwe will try to get pt to get the linzess we will have to resort to lactulose in the meantime if unable to get linzess Degenerati on of lumbar intervertebral disc 27040601 M51.36 bacl occ sore but is ok overall [id number] Jay Walker [facility] [address] [facility] [address],[place] [address] 01/22/2021 09:09:53 01/22/2021 09:40:44 Cobalamin deficiency 196790130 E53.8 cont monthly b12 [id number] Jay Walker [facility] [address] [facility] [address] [address] 02/12/2021 09:48:06 02/12/2021 14:58:49 Cobalamin deficiency 231392541 E53.8 cont monthly b12 [id number] Jay Walker [facility] [address] [facility] [address] 03/14/2021 09:31:54 03/14/2021 10:49:18 Cobalamin deficiency 543301452 E53.8 cont monthly b12 [id number] STEPH MALIK [facility] [address] [facility] [address], [facility] [facility] [address] 03/26/2021 09:15:17 03/26/2021 09:49:01 Active or passive immunization 050040256 Z23 up to date Adult [facility] th examination 206141856 Z00.00 BP excellent [id number] Jay Walker [facility] [address] [facility] [address] [address] 04/09/2021 09:26:31 04/09/2021 09:47:37 Cobalamin deficiency 077891770 E53.8 cont monthly b12 [id number] Jay Walker [facility] [address] [facility] [address], [place] [facility] [place] [address] 04/30/2021 09:35:52 04/30/2021 09:49:13 Cobalamin deficiency 709879130 E53.8 cont monthly b12 [id number] Jay Walker [facility] [address] [facility] [address],[place] [address] 05/26/2021 10:42:09 05/26/2021 12:16:13 Cobalamin deficiency 691749075 E53.8 cont monthly b12 [id number] Jay Walker [facility] [address] [facility] [address],[place] [address] 06/18/2021 09:24:54 06/18/2021 15:59:42 Cobalamin deficiency 939125099 E53.8 cont monthly b12 [id number] Jay Walker [facility] [address] [facility] [address],[place] [address] 07/14/2021 10:56:16 07/14/2021 14:04:26 Cobalamin deficiency 541643207 E53.8 cont monthly b12 [id number] Jay Arangoaly [facility] [address] [facility] [address],[place] [address] 08/01/2021 09:25:02 08/01/2021 12:17:25 Cobalamin deficiency 148138291 E53.8 cont monthly b12 [id number] ISIDRO KNIGHT [facility] Internal Medicine [address] [facility] [address],[place] [address] 08/06/2021 10:29:43 08/06/2021 16:15:17 Hypercholesterolemia 93424157 E78.2 stable Fibromyalgia 190288026 M 79.7 stable Osteoporosis 13494560 M8 1.0 will fu with [facility] [id number] Jay GunnSayra Aaron [facility] [address] [facility] [address],[place] [address] 08/25/2021 09:53:41 08/25/2021 10:16:47 Cobalamin deficiency 122017715 E53.8 cont monthly b12 [id number] [facility] [address] [facility] [address],[place] [address] 09/17/2021 11:25:42 09/19/2021 10:15:42 Cobalamin deficiency 085802773 E53.8 [id number] Jay Walker [facility] [address] [facility] [facility] [address] 09/30/2021 08:17:01 09/30/2021 11:32:28 Osteoporosis 67101293 M81.0 we will try the boniva Degenerati on of lumbar intervertebral disc 86477163 M51.36 back occ sore but is ok overall Irritable bowel syndrome 66835392 K58.9 Has been more lately but otherwise controlled Gastroesop hageal reflux disease 798888476 K21.9 pretty stable on famotidine and states as long as she is good with diet shes fine [id number] Jay Walker [facility] [address] [facility] [address] 12/03/2021 09:26:09 12/03/2021 11:28:41 Cobalamin deficiency 221746703 E53.8 [id number] Jay Walker [facility] [address] [facility],[place] [address] 12/24/2021 10:08:22 12/26/2021 14:25:17 Cobalamin deficiency 379132120 E53.8 [id number] Jay Walker [facility] [address] [facility],[place] [address] 01/09/2022 10:28:39 01/09/2022 15:34:07 Irritable bowel syndrome 75512252 K58.9 we will need to introduce her to fiber slowlystop dairy for 2 weekswe will get lab Right lowe r quadrant pain 253094225 R10.31 [id number] Jay Walker [facility] [address] [facility],[place] [address] 01/20/2022 09:46:10 01/20/2022 15:03:00 Right upper quadrant pain 762909910 R10.11 resolved with diet adjustment and stopping lactose [id number] Jay Walker [facility] [address] [facility],[place] [address] 01/21/2022 10:43:05 01/21/2022 11:18:16 Cobalamin deficiency 298612018 E53.8 [id number] Jay Arangoaly, [facility] [address] [facility] [address],[place] [address] 02/11/2022 09:25:35 02/11/2022 15:56:41 Cobalamin deficiency 516054744 E53.8 [id number] Jay Arangoaly [facility] [address] [facility] [address],[place] [address] 03/04/2022 09:13:14 03/04/2022 09:30:05 Cobalamin deficiency 313831474 E53.8 [id number] Jay Arangoaly [facility] [address] [facility] [address],[place] [address] 04/20/2022 09:19:40 04/20/2022 11:24:59 Cobalamin deficiency 710337403 E53.8 [id number] Jay Arangoaly [facility] [address] [facility] [address],[place] [address] 05/11/2022 09:25:09 05/11/2022 11:23:16 Cobalamin deficiency 764073814 E53.8 [id number] [facility] [address] [facility],[place] [address] 06/01/2022 10:17:40 06/01/2022 11:05:20 Hypercholesterolemia 99495702 E78.2 was unable to tolerate her new statin as it caused severe myalgias and this med was stopped so we shall plan on rechecking nest FBW B12 defici ency monitoring status 945308339 Z76.89 Much improved and no symptoms currently Gastroesop hageal reflux disease 910224997 K21.9 pretty stable on famotidine and states as long as she is good with diet shes fine Advance care planning 71 3624681 Z71.89 Active or passive immunization 677084908 Z23 patient advised she is due for tdap & shingles Depression screening 171 054755 Z13.31 Ataxia 65856475 R27.0 has fallen and having balance [id number] Jay GunnSayra Walker [facility] [address] [facility],[place] [address] 06/03/2022 09:36:04 06/03/2022 10:22:06 Cobalamin deficiency 148265207 E53.8 [id number] Jay Luo Aaron [facility] [address] [facility],[place] [address] 06/24/2022 09:20:06 06/24/2022 14:36:45 Cobalamin deficiency 467135857 E53.8 [id number] Jay Luo Aaron [facility] [address] [place] [address],[place] [address] 07/15/2022 09:14:25 07/15/2022 09:59:55 Cobalamin deficiency 046834191 E53.8 [id number] Jay Luo Aaron [facility] [address] [place] [address],[place] [address] 08/05/2022 09:41:19 08/05/2022 10:36:09 Cobalamin deficiency 015505568 E53.8 [id number] Jay Luo Aaron [facility] [address] [place] [address],[place] [address] 08/28/2022 09:11:36 08/28/2022 12:38:11 B12 deficiency monitoring status 668685875 Z76.89 Much improved and no symptoms currently Hypercholesterolemia 136 82458 E78.2 was unable to tolerate her new statin as it caused severe myalgias and this med was stopped so we shall plan on rechecking nest FBW Advance care planning 71 3854550 Z71.89 done Active or passive immunization 932200600 Z23 patient advised she is due for tdap, shingles, & flu shot Osteoporosis 20869378 M8 1.0 we will try the boniva Pain of ri ght shoulder joint 2809725025 5628380 M25.511 she has had rotator surgery in past and then has noteiced ovber the past months she is unable to lift arm or carry any wgt [id number] Jay Walker [facility] [address] [place] [address], ite [facility] [place] [address] 08/31/2022 09:22:48 08/31/2022 11:35:16 Cobalamin deficiency 540951927 E53.8 [id number] Jay GunnSayra Aaron [facility] [address], [place] [facility] [address] 09/28/2022 10:37:10 09/28/2022 12:21:03 Cobalamin deficiency 431900841 E53.8 [id number] Jay GunnSayra Aaron [facility] [address] [address] 10/14/2022 13:30:12 10/15/2022 10:08:58 Pain of right shoulder joint [id number] 3251978 M25.511 tolerated darrick inj well [id number] Jay Walker [facility] [address], [place] [address] 10/20/2022 09:23:21 10/20/2022 17:23:29 Cobalamin deficiency [id number] E53.8 [id number] ISIDRO KNIGHT [facility] Medicine [address] [place] [address] [place] [address] 11/04/2022 11:14:53 11/04/2022 13:24:25 Pre-surgery evaluation [id number] Z01.818 The patient was seen in the office today for pre-op evaluation . All medical conditions on patient's problem list were addressed and are currently stable, no interventi on needed at this time. Based on history and physical performed, the patient is cleared for surgery. BP on recheck was 132/72 L arm sitting, [place] complicati [place] [id number] Jay Luo Nbaaly [facility] [address], [place] [facility] [address] 11/16/2022 09:13:46 11/16/2022 10:27:53 Cobalamin deficiency 937823717 E53.8 [id number] Jay Walker [facility] [address] [facility] [address] [address] 12/09/2022 09:19:29 12/09/2022 11:46:46 Cobalamin deficiency [id number] E53.8 [id number] STEPH MALIK [facility] Medicine [address] [facility] [address] [address] 12/18/2022 11:32:11 12/21/2022 09:56:26 Pain of right shoulder joint 1021959269 1783343 M25.511 recently had an injection with MB, was not helpful for the pain Osteoarthritis 711974147 M15.0 will start on celecoxib as welldiscus sed her trying CBD lotion for her arthritic pain in her shoulders which she [place] agreeable to [id number] Jay Walker [facility] [address] [facility] [address] [address] 12/30/2022 09:18:49 12/30/2022 10:08:53 Cobalamin deficiency 986211250 E53.8 [id number] Jay Walker [facility] [address] [facility] [address] [address] 01/13/2023 13:48:44 01/13/2023 14:52:50 Pain of right shoulder joint [id number] 1765915 M25.511 darrick inj is recc Hypertensive disorder 38 842376 I10 stable Muscle pain 52708703 M79 .10 wondering about PMR [place] [id number] Jay Walker [facility] [address] [facility] [address],[place] [address] [facility] [place] [address] 01/26/2023 09:25:39 01/26/2023 09:37:07 Cobalamin deficiency 144691062 E53.8 [id number] Jay Walker [facility] [address] [facility] [address],[place] [address] 02/16/2023 09:25:49 02/17/2023 08:08:01 Cobalamin deficiency [id number] E53.8 [id number] Jay Puja Walker [facility] Medicine [address] [place] [address],[place] [facility] [place] [address] 03/10/2023 09:51:22 03/10/2023 14:22:32 Cobalamin deficiency 914866163 E53.8 [id number] Jay Puja Walker [facility] Medicine [address] [place] [address],[place] [address] 03/31/2023 09:12:06 03/31/2023 09:43:06 Cobalamin deficiency [id number] E53.8 [id number] Jay Walker [facility] [address], [place] [facility] [address] 04/21/2023 09:00:59 04/21/2023 12:20:25 Cobalamin deficiency 561576035 E53.8 [id number] Jay Walker [facility] [address], [place] [address] 05/12/2023 09:18:37 05/12/2023 10:04:22 Cobalamin deficiency 871221811 E53.8 [id number] Jay Walker [facility] [address], [place] [facility] [address] 06/02/2023 09:44:59 06/02/2023 10:27:29 Cobalamin deficiency [id number] E53.8 [id number] Jay Walker [facility] [address] [place] [address], [place] [address] 06/07/2023 10:00:36 06/07/2023 15:16:55 Degeneration of lumbar intervertebral disc 90614047 M51.36 much better since new mattress B12 defici ency monitoring status 075437220 Z76.89 Much improved and no symptoms currently Hypertensive disorder 38 445631 I10 stable no new issues [id number] Jay Walker [facility] [address] [place] [address],[place] [address] 06/23/2023 09:14:00 06/23/2023 09:41:15 Hypercholesterolemia 12232964 E78.2 Cobalamin deficiency 190 495881 E53.8 [id number] Jay Walker [facility] [address] [facility], ite [facility] [address] 07/14/2023 09:09:07 07/14/2023 15:35:43 [id number] Jay Walker [facility] [address] [facility],[place] [address] 08/04/2023 09:10:59 08/04/2023 12:14:21 Cobalamin deficiency 054533851 E53.8 [id number] Jay Walker [facility] [address] [facility],[place] [address] 08/25/2023 09:19:07 08/25/2023 10:04:57 Fibromyalgia 078710533 M79.7 Hypercholesterolemia 136 70786 E78.2 Hypertensive disorder 38 836555 I10 Cobalamin deficiency 190 779731 E53.8 [id number] Jay Walker [facility] [address] [facility],[place] [address] 09/15/2023 09:08:22 09/15/2023 11:00:23 Cobalamin deficiency 996126091 E53.8 [id number] ISIDRO KNIGHT [facility] Medicine [address] [facility],[place] [address] 10/12/2023 09:54:35 10/12/2023 09:57:11 Cobalamin deficiency 660845205 E53.8 [id number] Jay Walker [facility] [address] [facility],[place] [address] 11/03/2023 09:48:19 11/03/2023 14:41:50 Cobalamin deficiency 222336806 E53.8 [id number] Jay Walker [facility] [address] [facility], [place] [address] 11/12/2023 08:02:39 11/12/2023 13:36:44 B12 deficiency monitoring status 889936377 Z76.89 Much improved and no symptoms currently Hypercholesterolemia 136 65891 E78.2 Hypertensive disorder 38 645000 I10 Multiple joint pain 3567 8005 M25.50 Fatigue 45159610 R53.83 [id number] Jay Walker [facility] [address] [facility],[place] [address] 11/24/2023 09:49:17 11/24/2023 10:23:14 Cobalamin deficiency 376160641 E53.8 [id number] STEPH MALIK [facility] [address] [place] [address],[place] [address] 11/26/2023 15:53:07 11/30/2023 08:28:23 Fall R29.6 will do lab work firstwill set up with PT after we get her levels Polymyalgi a rheumatica 41347858 M35.3 will set up with taper down dose and recheck her levels Multiple joint pain 3567 8005 M25.59 will set up with repeat lab work to check everything and additional lab work [id number] Jay Walker [facility] [address] [facility],[place] [address] 12/15/2023 09:19:45 12/15/2023 15:01:17 Cobalamin deficiency 689666497 E53.8 [id number] STEPH MALIK [facility] [address] [facility],[place] [address] 12/29/2023 09:37:16 12/29/2023 11:23:33 Polymyalgia rheumatica 19143720 M35.3 recheck her levels [id number] Jay Walker [facility] [address] [place] [address] 01/12/2024 09:20:21 01/12/2024 09:42:26 Cobalamin deficiency 140480300 E53.8 [id number] STEPH MALIK [facility] [address] [facility],[place] [address] 02/07/2024 09:30:25 02/07/2024 10:11:03 Hypercholesterolemia 27580783 E78.2 stable Wound of skin 393124618 T14.8XXA will set up with silvadene to use on the areas the skin tags were removed [id number] Jay Walker [facility] [address],[place] [address] 02/02/2024 09:19:04 02/02/2024 16:51:58 Cobalamin deficiency 969464566 E53.8 [id number] Jay Walker [facility] [address],[place] [address] 02/09/2024 08:55:19 02/09/2024 09:45:51 Degenerative joint disease of shoulder region 51186202 M19.019 poppy darrick inj instructio ns given Cellulitis 566956447 L03 .90 [id number] Jay Walker [facility] [address],[place] [address] 02/23/2024 09:12:30 02/25/2024 10:22:30 Cobalamin deficiency 370237494 E53.8 [id number] STEPH MALIK [facility] Medicine [address] [place] [address],[place] [address] 03/14/2024 14:38:08 03/15/2024 09:02:09 Tick bite 64056398 W57.XXXA will set up with lab work Recurrent falls 36194746 2 R29.6 agreed to PT Depression screening 171 093785 Z13.31 0 [id number] Jay Walker [facility] [address] [facility],[place] [address] 03/20/2024 09:23:29 03/21/2024 08:32:30 Cobalamin deficiency 608007293 E53.8 [id number] Jay Walker [facility] [address] [facility],[place] [address] 04/10/2024 10:47:11 04/10/2024 12:37:36 Cobalamin deficiency 916360552 E53.8 [id number] STEPH MALIK [facility] [address] [facility] [address],[place] [address] 05/01/2024 09:22:27 05/01/2024 09:42:27 Cobalamin deficiency 701439153 E53.8 [id number] Jay Walker, [facility] [address] [facility] [address],[place] [address] 05/22/2024 09:23:01 05/22/2024 10:10:57 Cobalamin deficiency 234225289 E53.8 [id number] Jay Walker, [facility] [address] [facility] [address],[place] [address] 06/23/2024 09:14:22 06/23/2024 09:38:43 Cobalamin deficiency 275860889 E53.8 [id number] STEPH MALIK [facility] [address] [facility] [address],[place] [address] 07/14/2024 09:28:13 07/14/2024 09:38:14 Cobalamin deficiency 878647637 E53.8 [id number] Jay Walker [facility] [address] [facility] [address],[place] [address] 08/09/2024 09:30:31 08/09/2024 10:35:54 Cobalamin deficiency [id number] E53.8 [id number] Jay Walker [facility] [address] [facility] [address],[place] [address] 08/30/2024 09:38:44 08/30/2024 09:45:07 Cobalamin deficiency 196943497 E53.8 [id number] Jay Walker [facility] [address] [facility] [address],[place] [address] 10/06/2024 09:19:26 10/06/2024 09:34:54 Cobalamin deficiency 411178869 E53.8 [id number] Jay Walker [facility] [address] [facility],[place] [address] 10/13/2024 09:30:00 10/13/2024 10:17:15 Degeneration of lumbar intervertebral disc 49898472 M51.369 Fibromyalgia 605892622 M 79.7 no issue Hypercholesterolemia 136 40228 E78.2 Depression screening 171 998010 Z13.31 neg Muscle pain 35143609 M79 .10 wondering about PMR will chk lab and start trial pred after [id number] Jay Walker [facility] [address] [facility],[place] [address] 10/25/2024 09:24:08 10/25/2024 14:13:05 Cobalamin deficiency 689705880 E53.8 [id number] Jay Walker [facility] [address] [facility],[place] [address] 11/15/2024 09:15:59 11/15/2024 09:52:10 Cobalamin deficiency 709109527 E53.8 [id number] Jay Walker [facility] [address] [facility],[place] [address] 12/11/2024 09:38:07 12/11/2024 10:34:52 Cobalamin deficiency 370552606 E53.8 Health Concerns Section Related Observation LastModified by Organization Detai ls LastModified Time None Recorded Concern Status LastModified by Organization Details LastModified Time None Recorded Advance Directives Directive None Recorded Payers Encounter Date Sequence Insurance Name Policy Number Policy Resendiz Covered Member ID Resendiz Member ID Guarantor Name 10/06/2024 1 [place] [employer] Katie Valdez [id number] Katie Valdez 10/06/2024 2 [place] [id number] Katie Valdez [id number] Katie Valdez 10/13/2024 1 [place] [employer] [place] Katie A Golinski [id number] Katie Golinski 10/13/2024 2 [place] [id number] Katie A Golinski [id number] Katie Golinski 10/25/2024 1 [place] [employer] [employer] Katie A Golinski [id number] Katie Golinski 10/25/2024 2 [place] [id number] Katie A Golinski [id number] Katie Golinski 11/15/2024 1 [place] [employer] Katie A Golinski [id number] Katie Golinski 11/15/2024 2 [place] [id number] Katie A Golinski [id number] Katie Golinski 12/11/2024 1 [place] [employer] [place] Katie A Golinski [id number] Katie Golinski 12/11/2024 2 [place] [id number] Katie A Golinski [id number] Katie Golinski Notes Date Note Type Note Provider Name a nd Address Organization Details Recorded Time 10/13/2024 text/html here for rechk and has been doing ok overall except for her upper arms relates that it has been a month wondering about her shoulders with arthritis? Jay Walker, DO [address] [facility], [place], [address], [facility] 10/13/2024 09:49:22 OBGyn Episode No OBEpisode recorded.
== END 2025-01-09 07:42 | disposition home or self-care (01) ==
LOC: HO.MAMMO 07:41
PROVIDERS: PCP Internal Medicine; Visit Provider Internal Medicine Rheumatology
DX: M81.0 Age-related osteoporosis without current pathological fracture (principal)
CPT/HCPCS: 77080

== ENCOUNTER → 2025-01-09 08:15 | Outpatient (BNV) | payer MEDICARE, SELFPAY | PROVIDERS: PCP Internal Medicine; Visit Provider Radiology Diagnostic Radiology | DX: E28.39 Other primary ovarian failure (principal) | CPT/HCPCS: 77080 ==

== ENCOUNTER 2025-07-30 16:14 | Outpatient (REF) | payer MEDICARE, SELFPAY ==
[2025-07-30 18:28] LABS: MANUAL DIFF FLAG NO
[2025-07-30 18:35] LABS: Hematocrit 34.4 % (37.0-47.0); Hemoglobin 11.1 g/dl (12.0-16.0); Imm Gran Abs Auto 0.02 X10*3/uL (0.00-0.03); Imm Gran Pct Auto 0.2 % (0.0-0.4); Lymphocytes Absolute Auto 3.1 X10*3/uL (1.2-4.9); Mean Corpuscular HGB Conc 32.3 g/dl (31.0-35.0); Mean Corpuscular Hemoglobin 32.2 pg (27.0-33.0); Mean Corpuscular Volume 99.7 fL (80.0-98.0); NRBC Abs Auto 0.000 X10*3/uL (0.0-0.012); NRBC Pct Auto 0.0 /100WBC (0.0-0.2); Platelet Count 317 X10*3/uL (160-400); Red Blood Count 3.45 X10*6/uL (4.20-5.50); White Blood Count 8.1 X10*3/uL (4.8-10.8)
[2025-07-30 19:08] LABS: Alanine Aminotransferase 13 U/L (0-31); Albumin Level 4.5 g/dL (3.5-5.0); Alkaline Phosphatase 58 U/L (39-117); Anion Gap 12 (12-20); Aspartate Amino Transferase 31 U/L (5-31); Blood Urea Nitrogen 19 mg/dL (9-16); Calcium 9.1 mg/dL (8.4-10.2); Carbon Dioxide 27 mmol/L (22-29); Chloride 103 mmol/L (96-108); Estimated Glomerular Filt Rate > 60; Potassium 4.6 mmol/L (3.3-5.1); Sodium 137 mmol/L (135-145); Total Protein 7.4 g/dL (6.5-8.0)
[2025-07-30 19:25] LABS: Thyroid Stimulating Hormone 1.61 uIU/mL (0.32-4.0)
[2025-07-30 19:31] LABS: Vitamin B12 771 pg/mL (200-900)
--- OUTSIDE RECORDS SUMMARY | 2025-07-30 20:30 | XMS_ITS | Encounter Summary ---
Author Organization [facility] Address [address] [place] [address] Phone Care Team Providers Care Racing Car Driver Name Role Phone Aaron Jay Gunn DO Primary Care Provider [phone] Jay Walker DO Unavailable Padmaja Felipe RIGGING LOFT MECHANIC Unavailable [phone] Encounter Details Date Type Department Care Team (Late st Contact Info) Description 03/12/2024 Procedure Pass [facility], Ct Scan - [facility] [address] [place] [address] Social History Tobacco Use Types Packs/Day Years Used Date Smoking Tobacco: Former Smokeless Tobacco: Never Alcohol Use Standard Drinks/Week Comments Yes 4 (1 standard drink = 0.6 oz pur e alcohol) Glass per day. Education Answer Date Recorded Are you interested in more education? Not on kosta e 02/05/2023 Are you concerned about learning? Not on file 02/05/2023 No 02/05/2023 No 02/05/2023 Digital Access Answer Date Recorded No 03/08/2023 No 03/08/2023 Reliable internet access at home? Not on file 03/08/2023 Device with a working camera? Not on file Intimate Partner Violence Answer Date R ecorded Are you denied basic needs s uch as food, clothing, or medical care? No 03/12/2024 In the past 12 months have y ou been in a relationship with a person who hurts, threatens, or tries to control you? No 03/12/2024 Are you denied basic needs s uch as food, clothing, or medical care? No 03/12/2024 In the past 12 months have y ou been in a relationship with a person who hurts, threatens, or tries to control you? No 03/12/2024 Comments Unknown Sex and Gender Information Value Date Recorded Sex Assigned at Not on file Legal Sex Female 10:10 PM EDT Gender Identity Not on file Sexual Orientation Not on file documented as of this encounter Functional Status * Calculated C-SSRS Risk Score (Lifetime/Recent) Answer Date of Assessment Author No Risk Indicated 03/12/2024 6:37 AM EDT Cecilia Baron RN * Floyd Suicide Severity Rating Scale (Screener/Recent Self-Report) Question Answer Date of Assessment Author 1. Wish to be (Past 1 Month) No 024 6:37 AM EDT Cecilia Penny RN 2. Non-Specific Active Suici beth Thoughts (Past 1 Month) No 03/12/2024 6:37 AM EDT Michelle Penny ra, RN 6. Suicidal Behavior (Lifetime) No 6:37 AM EDT Cecilia Penny RN documented as of this encounter Plan of Treatment Not on file documented as of this encounter Visit Diagnoses Not on filedocumented in this encounter Care Teams Racing Car Driver Relationship Specialty Start Date End Date Jay Walker DO PCP - General 07/29/17 Jay Walker DO Historical LMR Provider 07/31/17 Padmaja Felipe NP [address] [place] [address] [email or web address] Historical LMR Provider 07/31/17 documented as of this encounter Additional Source Comments The information contained in this document represents components of the legal health record. It is not the complete legal health record.[facility]
--- OUTSIDE RECORDS SUMMARY | 2025-07-30 20:30 | XMS_ITS | Encounter Summary ---
Author Organization [facility] Address [address] [place] [address] Phone Care Team Providers Care Show Design Supervisor Name Role Phone Aaron Jay Gunn DO Primary Care Provider [phone] Jay Walker DO Unavailable Padmaja Felipe ACETYLENE TORCH OPERATOR Unavailable [phone] Encounter Details Date Type Department Care Team (Late st Contact Info) Description 03/12/2024 Procedure Pass [facility], Ct Scan - [facility] [address] [place] [address] Social History Tobacco Use Types Packs/Day Years [...] 6:37 AM EDT Cecilia Baron RN * [place] Suicide Severity Rating Scale (Screener/Recent Self-Report) Question [...] on filedocumented in this encounter Care Teams Show Design Supervisor Relationship Specialty Start Date End Date Jay Walker DO PCP - General 07/29/17 Jay Walker DO Historical LMR Provider 07/31/17 Padmaja Felipe NP [address] [place] [address] [email or web address] Historical LMR Provider 07/31/17 documented as of this encounter Additional Source Comments The information contained in this document represents components of the legal health record. It is not the complete legal health record.[facility]
--- OUTSIDE RECORDS SUMMARY | 2025-07-30 20:30 | XMS_ITS | Encounter Summary ---
Author Organization [facility] Address [address] [place] [address] Phone Care Team Providers Care Drawer Maker Name Role Phone Jay Walker DO Primary Care Provider [phone] Jay Walker DO Unavailable Kelly Art MD Unavailable [phone] Jc Saleh MD Unavailable Padmaja Felipe OPTOMETRY TEACHER Unavailable [phone] Tiago Henry MD Unavailable [phone] Zenaida Bonilla PA-C Unavailable Fatoumata Grewal MD Unavailable [phone] Kailyn Jaimes OPTOMETRY TEACHER Unavailable Encounter Details Date Type Department Care Team (Late st Contact Info) Description 02/23/2020 Transcribe Orders [facility] [address] [place] [address] Jay Walker DO [address] [facility] [address] [place], [place] [id number] [email or web address] Nonvenomous insect bite of head with infection, initial encounter (Primary Dx) Social History Tobacco Use Types Packs/Day Years Used Date Smoking Tobacco: Never Smokeless Tobacco: Never Alcohol Use Standard Drinks/Week Comments Yes 4 (1 standard drink = 0.6 oz pur e alcohol) Comments Unknown Sex and Gender Information Value Date Recorded Sex Assigned at Not on file Legal Sex Female 10:10 PM EDT Gender Identity Not on file Sexual Orientation Not on file documented as of this encounter Plan of Treatment Not on file documented as of this encounter Results * (ABNORMAL) Lyme screen with reflex to Western blot, blood (02/23/2020 9:36 AM EDT) Lyme AB IgG Positive(A) Negative [facility] Comment:The Lyme Disease Ant ibody, Confirmation, Serum (Western Blot) has been reflexed. The results will follow. Lyme AB IgM Negative Negative [facility] Blood 02/23/2020 9:36 AM EDT 02/23/2020 10:41 AM EDT us Jay Walker DO LAB BLOOD ORDERABLES Final Resul t Performing Organization Address City/State/[facility] Co de Phone Number [address] [address] documented in this encounter Visit Diagnoses Diagnosis Nonvenomous insect bite of head with infection, initial encounter- Primary documented in this encounter Additional Health Concerns Infection Onset Date Last Indicated Resolved Time CoV-Risk Comment:Per Ambulatory Triage Form 03/23/2022 03/23/202204/03 1:24 AM EDT documented as of this encounter Care Teams Drawer Maker Relationship Specialty Start Date End Date Jay Walker DO PCP - General 07/29/17 Jay Walker DO [email or web address] Historical LMR Provider 07/31/17 Kelly Art MD [address] [place] [address] Historical LMR Provider 07/31/17 Jc Saleh MD [address] [place] [address] [email or web address] Historical LMR Provider 07/31/17 10/18/21 Padmaja Felipe NP [address] [place] [address] [email or web address] Historical LMR Provider 07/31/17 Tiago Henry MD [address] [place] [address] [email or web address] Historical LMR Provider 07/31/17 10/18/21 Zenaida Bonilla PA-C [address] [place] [address] Orthopedics & Sports Medicine, [facility] [place] [address] [email or web address] Historical LMR Provider 07/31/17 10/18/21 Fatoumata Grewal MD [address], [place] [address] Historical LMR Provider 07/31/17 2 Kailyn Jaimes NP [address] [place] [address] Historical LMR Provider 07/31/17 2 documented as of this encounter Additional Source Comments The information contained in this document represents components of the legal health record. It is not the complete legal health record.[facility]
--- OUTSIDE RECORDS SUMMARY | 2025-07-30 20:30 | XMS_ITS | Encounter Summary ---
Author Organization [facility] Address [address] [place] [address] Phone Care Team Providers Care Ict Quality Assurance Engineer Name Role Phone Aaron Jay Gunn DO Primary Care Provider [phone] Jay Walker DO Unavailable Padmaja Felipe SPRING MANUFACTURING SET UP TECHNICIAN Unavailable [phone] Encounter Details Date Type Department Care Team (Late st Contact Info) Description 03/12/2024 Procedure Pass [facility], Ct Scan - [facility] [address] [place] [address] Social History Tobacco Use Types Packs/Day Years [...] 6:37 AM EDT Cecilia Baron RN * [place] Suicide Severity Rating Scale (Screener/Recent Self-Report) Question [...] on filedocumented in this encounter Care Teams Ict Quality Assurance Engineer Relationship Specialty Start Date End Date Jay Walker DO PCP - General 07/29/17 Jay Walker DO Historical LMR Provider 07/31/17 Padmaja Felipe NP [address] [place] [address] [email or web address] Historical LMR Provider 07/31/17 documented as of this encounter Additional Source Comments The information contained in this document represents components of the legal health record. It is not the complete legal health record.[facility]
--- OUTSIDE RECORDS SUMMARY | 2025-07-30 20:30 | XMS_ITS | Encounter Summary ---
Author Organization [facility] Address [address] [place] [address] Phone Care Team Providers Care Fruit Thinner Name Role Phone Aaron Jay Gunn DO Primary Care Provider [phone] Jay Walker DO Unavailable Padmaja Felipe LENDING ADVISOR Unavailable [phone] Encounter Details Date Type Department Care Team (Late st Contact Info) Description 03/12/2024 Procedure Pass [facility], Ct Scan - [facility] [address] [place] [address] Social History Tobacco Use Types Packs/Day Years [...] 6:37 AM EDT Cecilia Baron RN * [place] Suicide Severity Rating Scale (Screener/Recent Self-Report) Question [...] on filedocumented in this encounter Care Teams Fruit Thinner Relationship Specialty Start Date End Date Jay Walker DO PCP - General 07/29/17 Jay Walker DO Historical LMR Provider 07/31/17 Padmaja Felipe NP [address] [place] [address] [email or web address] Historical LMR Provider 07/31/17 documented as of this encounter Additional Source Comments The information contained in this document represents components of the legal health record. It is not the complete legal health record.[facility]
--- OUTSIDE RECORDS SUMMARY | 2025-07-30 20:30 | XMS_ITS | Encounter Summary ---
Author Organization [facility] Address [address] [place] [address] Phone Care Team Providers Care Penciller Name Role Phone Jay Walker DO Primary Care Provider [phone] Jay Walker DO Unavailable Padmaja Felipe MANAGER ETHICS Unavailable [phone] Encounter Details Date Type Department Care Team (Late st Contact Info) Description 03/03/2024 Transcribe Orders Virtual Department [address] [place] [address] Jay Walker DO [address] [facility] [place] [address] [place] [address] [email or web address] Degeneration of lumbar intervertebral disc (Primary Dx); Other intervertebral disc degeneration, lumbar region Social History Tobacco Use Types Packs/Day Years [...] with a working camera? Not on file Comments Unknown Sex and Gender Information Value Date Recorded Sex Assigned at Not on file Legal Sex Female 10:10 PM EDT Gender Identity Not on file Sexual Orientation Not on file documented as of this encounter Plan of Treatment Not on file documented as of this encounter Results * XR LUMBOSACRAL SPINE 2-3 VIEWS (03/04/2024 8:42 AM EDT) Anatomical Region Laterality Modality L-spine Computed Radiogr aphy 03/07/2024 2:15 AM EDT Impressions 03/07/2024 2:17 AM EDT No significant change in upper lumbar spine discogenic degenerative changes most pronounced at L1-L2. Similar lower lumbar spine facet predominant degenerative change. Narrative 03/07/2024 2:17 AM EDT XR LUMBOSACRAL SPINE 2-3 VIEWS Referring clinician's provided indication for this examination in [facility]: Outside Radiology Order; Degeneration of lumbar intervetebral disc REQUESTED INDICATION: Outside Radiology Order; Degeneration of lumbar intervetebral disc COMPARISON: XR LUMBOSACRAL SPINE 2-3 VIEWS FINDINGS: ALIGNMENT: No spondylolisthesis. VERTEBRAE: Bones demineralized. Unchanged partially visualized T11 anterior wedging. Remaining vertebral body height preserved. DISCS: Disc height loss and endplate sclerosis and marginal osteophytes T11-L2. FACETS: Facet arthropathy L4-S1. PARASPINAL SOFT TISSUES: Mild aortic vascular calcification. Partially visualized hip osteoarthritis. Procedure Note Becca Caruso MD - 03/07/2024 XR LUMBOSACRAL SPINE 2-3 VIEWS Referring clinician's provided indication for this examination in [facility]:Outside Radiology Order; Degeneration of lumbar intervetebral disc REQUESTED INDICATION: Outside Radiology Order; Degeneration of lumbarintervetebral disc COMPARISON: XR LUMBOSACRAL SPINE 2-3 VIEWS FINDINGS: ALIGNMENT: No spondylolisthesis. VERTEBRAE: Bones demineralized. Unchanged partially visualized [id number] wedging. Remaining vertebral body height preserved. DISCS: Disc height loss and endplate sclerosis and marginal [id number]. FACETS: Facet arthropathy L4-S1. PARASPINAL SOFT TISSUES: Mild aortic vascular calcification. Partiallyvisualized hip osteoarthritis. IMPRESSION: No significant change in upper lumbar spine discogenic degenerativechanges most pronounced at L1-L2. Similar lower lumbar spine facet predominant degenerative change. us Jay Walker IMG XR SPINE Final Result documented in this encounter Visit Diagnoses Diagnosis Other intervertebral disc degeneration, lumbar region Other intervertebral disc degeneration, lumbar region documented in this encounter Care Teams Penciller Relationship Specialty Start Date End Date Jay Walker DO PCP - General 07/29/17 Jay Walker DO [email or web address] Historical LMR Provider 07/31/17 Padmaja Felipe NP [address] [place] [address] [email or web address] Historical LMR Provider 07/31/17 documented as of this encounter Additional Source Comments The information contained in this document represents components of the legal health record. It is not the complete legal health record.[facility]
--- OUTSIDE RECORDS SUMMARY | 2025-07-30 20:30 | XMS_ITS | Encounter Summary ---
Author Organization [facility] Address [address] [place] [address] Phone Care Team Providers Care Circus Rider Name Role Phone Jay Walker DO Primary Care Provider [phone] Jay Walker DO Unavailable Padmaja Felipe COMPLIANCE ADVISOR Unavailable [phone] Encounter Details Date Type Department Care Team (Late st Contact Info) Description 10/21/2023 Ancillary Orders Virtual Department [address] [place] [address] Jay Walker DO [address] [facility] [place] [address] [place] [address] [email or web address] Paraplegia, unspecified (Primary Dx) Social History Tobacco Use Types [...] as of this encounter Results * XR HIPS 2+ VW EA BILAT PLUS PELVIS (10/21/2023 9:36 AM EST) Anatomical Region Laterality Modality Hip, Pelvis Computed Radiogr aphy 10/22/2023 2:04 AM EST Impressions 10/22/2023 10:51 PM EST Mild to moderate hip joint space narrowing bilaterally. Likely left gluteal calcific tendinopathy. Narrative 10/22/2023 10:51 PM EST XR HIPS 2+ VW EA BILAT PLUS PELVIS Referring clinician's provided indication for this examination in Epic: Outside Radiology Order; PARAPLEGIA COMPARISON: None FINDINGS: PELVIS: Pelvic ring intact. No displaced fracture. Degenerative changes of the lower lumbar spine, sacroiliac joints, and pubic symphysis. RIGHT HIP: Mild to moderate diffuse joint space narrowing. LEFT HIP: Mild to moderate diffuse hip joint space narrowing. Amorphous mineralization in the region of the greater trochanter at the gluteal tendon attachment. Procedure Note Becca Caruso MD - 10/22/2023 XR HIPS 2+ VW EA BILAT PLUS PELVIS Referring clinician's provided indication for this examination in Epic:Outside Radiology Order; PARAPLEGIA COMPARISON: None FINDINGS: PELVIS: Pelvic ring intact. No displaced fracture. Degenerative changes ofthe lower lumbar spine, sacroiliac joints, and pubic symphysis. RIGHT HIP: Mild to moderate diffuse joint space narrowing. LEFT HIP: Mild to moderate diffuse hip joint space narrowing. Amorphousmineralization in the region of the greater trochanter at the glutealtendon attachment. IMPRESSION: Mild to moderate hip joint space narrowing bilaterally. Likely left gluteal calcific tendinopathy. us Jay A Bigda DO IMG XR PELVIS Final Result documented in this encounter Visit Diagnoses Diagnosis Paraplegia, unspecified Paraplegia, unspecified- Primary documented in this encounter Care Teams Circus Rider Relationship Specialty Start Date End Date NbaJay lu DO PCP - General 07/29/17 AaronJayDO Historical LMR Provider 07/31/17 Padmaja Felipe NP [address] [place] [address] [email or web address] Historical LMR Provider 07/31/17 documented as of this encounter Additional Source Comments The information contained in this document represents components of the legal health record. It is not the complete legal health record.[facility]
--- OUTSIDE RECORDS SUMMARY | 2025-07-30 20:30 | XMS_ITS | Encounter Summary ---
Author Organization [facility] Address [address] [place] [address] Phone Care Team Providers Care Coffin Maker Name Role Phone Jay Walker Primary Care Provider [phone] NbaJay lu Unavailable Kelly Art MD Unavailable [phone] Jc Saleh MD Unavailable Padmaja Felipe COAL HAULER Unavailable [phone] Tiago Henry MD Unavailable [phone] Zenaida Bonilla PA-C Unavailable [phone] Fatoumata Grewal MD Unavailable [phone] Kailyn Jaimes COAL HAULER Unavailable Encounter Details Date Type Department Care Team (Latest Contact Info) Description 08/23/2019 Transcribe Orders Virtual Department [address] [place] [address] Maria A StormyPHUC [address] [place], [place] [id number] [email or web address] Acute low back pain, unspecified back pain laterality, unspecified whether sciatica present (Primary Dx) Social History Tobacco Use Types [...] documented as of this encounter Visit Diagnoses Diagnosis Acute low back pain, unspecified back pain laterality, unspecified whether sciatica present- Primary documented in this encounter Additional Health Concerns Infection Onset Date Last Indicated Resolved Time CoV-Risk Comment:Per Ambulatory Triage Form 03/23/2022 03/23/202204/03 1:24 AM EDT documented as of this encounter Care Teams Coffin Maker Relationship Specialty Start Date End Date Jay Walker DO [email or web address] PCP - General 07/29/17 Jay Walker DO [email or web address] Historical LMR Provider 07/31/17 Kelly Art MD [address] [place] [address] Historical LMR Provider 07/31/17 Jc Saleh MD [address] [place] [address] [email or web address] Historical LMR Provider 07/31/17 10/18/21 Padmaja Felipe NP [address] [place] [address] [email or web address] Historical LMR Provider 07/31/17 Tiago Henry MD [address] [place] [address] [email or web address] Historical LMR Provider 07/31/17 10/18/21 Zenaida Bonilla PA-C [address] [place] [address] Orthoped[facility], [place] [address] [email or web address] Historical LMR Provider 07/31/17 10/18/21 Fatoumata Grewal MD [address], [place] [address] Historical LMR Provider 07/31/17 2 Kailyn Jaimes NP [address] [place] [address] Historical LMR Provider 07/31/17 2 documented as of this encounter Additional Source Comments The information contained in this document represents components of the legal health record. It is not the complete legal health record.[facility]
--- OUTSIDE RECORDS SUMMARY | 2025-07-30 20:31 | XMS_ITS | Clinical Summary ---
Author Organization [facility] Address [address] [place] [address] Phone Care Team Providers Care Mental Health Associate Name Role Phone Nbaaly Jay Gunn DO Primary Care Provider Jay Walker DO Unavailable Padmaja Felipe BLANKET WINDER OPERATOR Unavailable [phone] Allergies Active Allergy Reactions Criticality Noted Date Comments Alendronate Nausea Only High 10/17/2021 Iodinated Contrast Media 09/14/2019 Iodine Hives 05/25/2019 Cephalexin Itching 07/26/2024 Nitrofurantoin Diarrhea 04/15/2020 Vgyiiot-Bjy-Abx Reductase Inhibitors Myalgia 09/14/2019 Medications IBUPROFEN (ADVIL ORAL) Active traMADol (ULTRAM) 50 mg tabletIndication s:prn Take 50 mg by mouth. Indications: prn Active lactase (LACTAID) 3,000 unit tabletIndication s:prn Indications: prn Active cholecalciferol, vitamin D3, 25 mcg (1,000 unit) capsule Vitamin D3 25 mcg (1,000 unit) capsule Take by oral route. Active MAGNESIUM ORAL Take 500 mg by mouth. Active dicyclomine (BENTYL) 10 MG capsule Take 10 mg by mouth as needed. Active docusate sodium (STOOL SOFTENER ORAL) Take by mouth. Activ e CYANOCOBALAMIN, VITAMIN B-12, INJIndications:i njection every 3 weeks Inject as directed. Use as directed Indications: injection every 3 weeks Active bromfenac (PROLENSA) 0.07 % Drop ophthalmic solution Active moxifloxacin (VIGAMOX) 0.5 % ophthalmic solution Active prednisoLONE acetate (PRED FORTE) 1 % ophthalmic suspension Place 1 drop into the right eye 4 (four) times a day. 5 mL 4 Active Additional Information Patient not taking.Reported on 02/12/2025 silver sulfADIAZINE (SILVADENE) 1 % cream Active predniSONE (DELTASONE) 10 MG tablet Active cephalexin (KEFLEX) 500 MG capsule Active fluticasone-umec lidin-vilanter (TRELEGY ELLIPTA) 100-62.5-25 mcg inhalation powder Inhale 1 puff every day by inhalation route. Active sulfamethoxazole -trimethoprim (BACTRIM DS) 800-160 mg per tablet TAKE 1 TABLET BY MOUTH TWICE DAILY FOR 3 DAYS Active clotrimazole-bet amethasone (LOTRISONE) cream Apply topically 2 (two) times a day. 30 g 5 Active Active Problems Problem Noted Date Diagnosed Date Corns and callosities 12/30/2024 Ataxia 06/01/2022 Multiple joint pain 03/25/2022 Age-related osteoporosis wit hout current pathological fracture 02/27/2022 Assessment & Plan (06/11/2022 10:14 AM EDT): The patient does not appear to be getting adequate calcium intake so I am prescribing calcium 500 mg twice a day to be taken with food. She still has not done the biochemical evaluation for secondary causes of osteoporosis. She needs to get that done today. I think I would like her to start taking more calcium intake before we administer Prolia because she could develop hypercalcemia if she does not get adequate calcium intake so I am going to give her a follow-up appointment again in 3 months time. On the follow-up visit assuming that I do not find any contraindications to the use of Prolia we can start the injection then. Assessment & Plan (02/27/2022 10:14 AM EDT): This is a patient who developed osteopenia unclear when progressed to osteoporosis. Risk factors for osteoporosis include age, menopause, remote tobacco use, decrease calcium intake, use of intra-articular corticosteroids, proton pump inhibitors for undetermined time. Phenobarbital possibly for short period of time. She has had traumatic fractures. She has lost maybe 3.5 inches in height. She was not able to tolerate oral bisphosphonates. She is interested in Prolia subcutaneous injections for management of osteoporosis. At this point I want to do biochemical work-up for secondary etiologies of osteoporosis. I have given her information on Prolia to read over. On the follow-up visit we can administer the medication she has Medicare so the medication is covered. I reviewed that Denosumab (Prolia) is a q 6 month subcutaneous injection that has good bone density and fracture data. It s mechanism of action is as a monoclonal antibody directed against RANK ligand. It acts as an antiresorptive agent on the bones by suppressing formation of osteoclasts. It is indicated for osteoporosis in women and men, bony metastases in breast, prostate and other solid tumors, and is approved for aromatase inhibitor bone loss. Potential side effects include injection site pain and swelling (short lived), rash, infection, osteonecrosis of the jaw (5.2 out 10,000 patients) and possibly atypical femur fractures (0.8 out of 10,000). It is necessary to stay current with calcium and Vitamin D intake as hypocalcemia can develop. Labs were reviewed and there is no hypocalcemia. Denosumab ten year data has been presented and shows continued increases in BMD (lumbar spine 21.7% increase in BMD, and hip was 9.2% increase in BMD over 10 years) and continued fracture risk reduction (68% vertebral and hip, 40% non-vertebral, 20% for hip over a three year period) without significant increases in potential side effects. The patient has been instructed to call our office if any symptoms develop or if pain in the thigh develops. I did not administer the medication today I would like her to read over the handout and make sure that she is okay with using this medication. The patient needs to increase her calcium intake by 500 mg. If she drinks 2 glasses of milk a day she is going to get an additional 300 mg so she will still be short. She can also eat an extra additional 1 inch chunk of cheese. Or she could take 500 mg calcium supplement tablet with food. Osteoporosis 08/06/2021 Osteopenia of spine 12/14/2020 Dermatochalasis of eyelids of both eyes 04/18/20 Adhesive capsulitis of shoulder 04/18/2020 Degeneration of lumbar intervertebral disc 03/02 Thyroid nodule 12/14/2017 Lyme disease 12/14/2017 Hypercholesterolemia 12/14/2017 Blanchard's esophagus 12/14/2017 Irritable bowel syndrome 12/14/2017 Osteoarthritis of shoulder 12/14/2017 Fibromyalgia 04/10/1905 Immunizations Immunization Administration Dates Next Due COVID-19 (Pre-08/02) Kextil Vaccine, [id number], PF 12/13/2020,11/22/2020 COVID-19 (Pre-08/02) Pfizer Vaccine, Bivalent 12+ 07/12/2022 COVID-19 (Pre-08/02) Pfizer Vaccine, mRNA, PF 07/12/2022,12/13/2020,11/22/2020 [id number] FORMULATION 10/30/2009 INFLUENZA, SPLIT VIRUS, TRIVALENT PF 06/18/2020 Influenza High-Dose Quadriva lent Preservative Free IM 08/07/2023,06/26/2022 Influenza High-Dose Trivalen t Preservative Free IM 07/13/2018,06/25/2015 Influenza Quadrivalent Adjuv anted Preservative Free IM 07/03/2021 Influenza Quadrivalent w/ Pr eservative IM 07/03/2021,06/18/2020,07/01/2019,07/13 Influenza Trivalent Adjuvant ed Preservative free IM 08/07/2020,07/01/2019,06/24/2017,07/09 Influenza, Unspecified Formulation 07/31/2022 Pneumococcal conjugate PCV13 05/01/2015 Pneumococcal polysaccharide PPSV23 07/06/2017,,07/03/2009 Zoster live 08/05/2009 Family History Medical History Relation Comments CV disease Father Coronary artery disease Father Arthritis Mother CV disease Mother Coronary artery disease Mother Hypertension Mother Relation Status Comments Father Mother Social History Tobacco Use Types Packs/Day Years Used Date Smoking Tobacco: Former Smokeless Tobacco: Never Tobacco Cessation:Counseling Given: Not Answered Alcohol Use Standard Drinks/Week Comments Yes 4 [...] on file Sexual Orientation Not on file Last Filed Vital Signs Vital Sign Reading Time Taken Comments Blood Pressure 154/81 03/05/2025 9:04 AM EDT Pulse 87 03/05/2025 9:04 AM EDT Temperature 36.9 C (98.5 F) 03/05/2025 9:04 AM EDT Respiratory Rate 16 03/05/2025 9:04 AM EDT Oxygen Saturation 98% 03/05/2025 9:04 AM EDT Inhaled Oxygen Concentration - - Weight 59 kg (130 lb) 03/05/2025 9:04 AM EDT Height 167.6 cm (5' 6 ) 03/05/2025 9:04 AM EDT Body Mass Index 20.98 03/05/2025 9:04 AM EDT Plan of Treatment Health Maintenance Due Date Last Done Comments Adult Td,Tdap Booster 1945 DEPRESSION SCREENING 1955 OSTEOPOROSIS SCREENING INITIAL (ONE-TIME) 01/12/2008 ZOSTER VACCINES (2 of 3) 09/30/2009 08/05/2009 RSV VACCINE (1 - 1-dose 75+ series) 2018 INFLUENZA VACCINE (#1) 2025 , 08/07/2023, 07/31/2022, Additional history exists COVID-19 VACCINE ( season) 2025 06/22/2024, 07/12/2022, 07/12/2022, Additional history exists PNEUMOCOCCAL VACCINES (50+ years) Completed 07/06/2017, 06/24/2017, 05/01/2015, Additional history exists HEPATITIS A VACCINES Aged Out No long er eligible based on patient's age to complete this topic HIB VACCINES Aged Out No longer eligi ble based on patient's age to complete this topic MENINGOCOCCAL VACCINES (ACWY) Aged Out No longer eligible based on patient's age to complete this topic MENINGOCOCCAL VACCINES (B) Aged Out N o longer eligible based on patient's age to complete this topic Medical Devices Not on file Insurance MEDICARE PART A & B [facility] MEDEX SUPPLEMENT MEDICARE PART A & B [employer] MED[employer] SUPPLEMENT MEDICARE PART A & B [place] [employer] SUPPLE[place] MEDICARE PART A & B [place] [employer] SUPPLE[place] MEDICARE PART A & B [place] [employer] SUPPLEMENT MEDICARE PART A & B [place] [employer] SUPPLEMENT MEDICARE PART A & B [employer] MED[employer] SUPPLEMENT MEDICARE PART A & B [place] MED[employer] SUPPLEMENT MEDICARE PART A & B [employer] MEDEX SUPPLEMENT Member Subscriber Plan / Payer (Ef fective 2008-Present) Name:Katie Valdez Relation to Subscriber:Self Name:Katie Valdez Payer ID:[id number] (NAIC) Type:Indemnity Address: [address] [place] [id number] Care Teams Mental Health Associate Relationship Specialty Start Date End Date Jay Walker DO PCP - General 07/29/17 Jay Walker DO Historical LMR Provider 07/31/17 Padmaja Felipe NP [address] [place] [address] [email or web address] Historical LMR Provider 07/31/17 Additional Source Comments The information contained in this document represents components of the legal health record. It is not the complete legal health record.[facility]
--- OUTSIDE RECORDS SUMMARY | 2025-07-30 20:31 | XMS_ITS | Encounter Summary ---
Author Organization [facility] Address [address] [place] [address] Phone Care Team Providers Care Life Care Planner Name Role Phone Jay Walker DO Primary Care Provider [phone] Jay Walker DO Unavailable Padmaja Felipe HOUSE DIRECTOR Unavailable [phone] Encounter Details Date Type Department Care Team (Late st Contact Info) Description 08/28/2022 Transcribe Orders Virtual Department [address] [place] [address] Jay Walker DO [address] [facility] [place] [address] [place] [address] [email or web address] Right shoulder pain, unspecified chronicity (Primary Dx) Social History Tobacco Use Types Packs/Day Years Used Date Smoking Tobacco: Former Smokeless Tobacco: Never Alcohol Use Standard Drinks/Week Comments Yes 4 (1 standard drink = 0.6 oz pur e alcohol) Glass per day. Comments Unknown Sex and Gender Information Value Date Recorded Sex Assigned at Not on file Legal Sex Female 10:10 PM EDT Gender Identity Not on file Sexual Orientation Not on file documented as of this encounter Plan of Treatment Not on file documented as of this encounter Results * XR SHOULDER 2 VIEWS (RIGHT) (09/01/2022 10:02 AM EST) Anatomical Region Laterality Modality Shoulder Right Computed Radiogr aphy 09/01/2022 8:57 PM EST Impressions 09/01/2022 8:58 PM EST Postoperative changes of the right shoulder. Mild acromioclavicular joint degenerative changes. Narrative 09/01/2022 8:58 PM EST XR SHOULDER 2 OR MORE VIEWS (RIGHT) COMPARISON: 03/28/2014. FINDINGS: The glenohumeral joint space is maintained. There are mild acromioclavicular joint degenerative changes. There are suture anchors in the humeral head in keeping with prior rotator cuff repair. Procedure Note Franki Hoskins MD - 09/01/2022 XR SHOULDER 2 OR MORE VIEWS (RIGHT) COMPARISON: 03/28/2014. FINDINGS: The glenohumeral joint space is maintained. There are mildacromioclavicular joint degenerative changes. There are suture anchors inthe humeral head in keeping with prior rotator cuff repair. IMPRESSION: Postoperative changes of the right shoulder. Mild acromioclavicular jointdegenerative changes. Jay Walker DO IMG XR UPPER EXTREMITY Final Res ult documented in this encounter Visit Diagnoses Diagnosis Right shoulder pain, unspecified chronicity- Primary Right shoulder pain, unspecified chronicity documented in this encounter Care Teams Life Care Planner Relationship Specialty Start Date End Date Jay Walker DO PCP - General 07/29/17 Jay Walker DO Historical LMR Provider 07/31/17 Padmaja Felipe NP [address] [place] [address] [email or web address] Historical LMR Provider 07/31/17 documented as of this encounter Additional Source Comments The information contained in this document represents components of the legal health record. It is not the complete legal health record.[facility]
--- OUTSIDE RECORDS SUMMARY | 2025-07-30 20:31 | XMS_ITS | Encounter Summary ---
Author Organization [facility] Address [address] [place] [address] Phone Care Team Providers Care Manager Package Name Role Phone Jay Walker DO Primary Care Provider [phone] Jay Walker DO Unavailable Padmaja Felipe IT OPERATIONS MANAGER Unavailable [phone] Encounter Details Date Type Department Care Team (Late st Contact Info) Description 10/20/2023 Transcribe Orders Virtual Department [address] [place] [address] Jay Walker DO [address] [facility] [place] [address] [place] [address] [email or web address] Paraplegia, unspecified (Primary Dx) Social History Tobacco [...] Results * XR LUMBOSACRAL SPINE 2-3 VIEWS (10/21/2023 9:37 AM EST) Anatomical Region Laterality Modality L-spine Computed Radiogr aphy 10/22/2023 10:5 1 PM EST Impressions 10/22/2023 10:53 PM EST Unchanged T11 anterior wedge compression deformity. Similar upper lumbar spine discogenic degenerative changes and lower lumbar spine facet predominant degenerative change. Narrative 10/22/2023 10:53 PM EST XR LUMBOSACRAL SPINE 2-3 VIEWS Referring clinician's provided indication for this examination in [facility]: Outside Radiology Order; PARAPLEGIA COMPARISON: XR LUMBOSACRAL SPINE 2-3 VIEWS ; CT ABDOMEN/PELVIS WITHOUT CONTRAST FINDINGS: ALIGNMENT: No spondylolisthesis. VERTEBRAE: Bones demineralized. T11 anterior wedging similar 33% height loss when compared to CT from 2020. DISCS: Disc height loss and endplate sclerosis and marginal osteophytes T11-L2. FACETS: Facet arthropathy L4-S1. PARASPINAL SOFT TISSUES: Mild aortic vascular calcification. Procedure Note Becca Caruso MD - 10/22/2023 XR LUMBOSACRAL SPINE 2-3 VIEWS Referring clinician's provided indication for this examination in [facility]:Outside Radiology Order; PARAPLEGIA COMPARISON: XR LUMBOSACRAL SPINE 2-3 VIEWS ; CT ABDOMEN/PELVISWITHOUT CONTRAST FINDINGS: ALIGNMENT: No spondylolisthesis. VERTEBRAE: Bones demineralized. T11 anterior wedging similar 33% heightloss when compared to CT from 2020. DISCS: Disc height loss and endplate sclerosis and marginal [id number]. FACETS: Facet arthropathy L4-S1. PARASPINAL SOFT TISSUES: Mild aortic vascular calcification. IMPRESSION: Unchanged T11 anterior wedge compression deformity. Similar upper lumbar spine discogenic degenerative changes and lowerlumbar spine facet predominant degenerative change. us Jay Walker DO IMG XR SPINE Final Result documented in this encounter Visit Diagnoses Diagnosis Paraplegia, unspecified- Primary Paraplegia, unspecified documented in this encounter Care Teams Manager Package Relationship Specialty Start Date End Date Jay Walker DO PCP - General 07/29/17 Aaron Jay GunnDO Historical LMR Provider 07/31/17 Padmaja Felipe, CK [address] [place] [address] [email or web address] Historical LMR Provider 07/31/17 documented as of this encounter Additional Source Comments The information contained in this document represents components of the legal health record. It is not the complete legal health record.[facility]
--- OUTSIDE RECORDS SUMMARY | 2025-07-30 20:32 | XMS_ITS | Encounter Summary ---
Author Organization [facility] Address [address] [place] [address] Phone Care Team Providers Care Administrative Assistant Coordinator Name Role Phone Jay Walker DO Primary Care Provider [phone] Jay Walker DO Unavailable Padmaja Felipe TEXTURE ARTIST Unavailable [phone] Encounter Details Date Type Department Care Team (Late st Contact Info) Description 01/09/2022 Transcribe Orders Virtual Department [address] [place] [address] Jay Walker DO [address] [facility] [address] [place] [address] [email or web address] Right lower quadrant pain (Primary Dx) Social History Tobacco Use Types [...] as of this encounter Visit Diagnoses Diagnosis Right lower quadrant pain- Primary documented in this encounter Additional Health Concerns Infection Onset Date Last Indicated Resolved Time CoV-Risk Comment:Per Ambulatory Triage Form 03/23/2022 03/23/202204/03 1:24 AM EDT documented as of this encounter Care Teams Administrative Assistant Coordinator Relationship Specialty Start Date End Date Jay Walker DO PCP - General 07/29/17 [email or web address] Historical LMR Provider 07/31/17 Padmaja Felipe NP [address] [place] [address] [email or web address] Historical LMR Provider 07/31/17 documented as of this encounter Additional Source Comments The information contained in this document represents components of the legal health record. It is not the complete legal health record.[facility]
--- OUTSIDE RECORDS SUMMARY | 2025-07-30 20:32 | XMS_ITS | Continuity of Care Document ---
Author Organization [facility] Address [address] [facility] [place] [address] [place] [address] Assessment Encounter Date Assessment Date Assessment LastModified by Organization Details LastModified Time 07/30/2025 07/30/2025 wondering if she sustained a concussiona nd is now post concussion synd will order testing Not available 07/30/2025 16:08:41 Plan of Treatment Reminders Order Date Submit Date Provider Last Modified By Organization Details Last Modified Time Details Appointments FOLLOW UP 15 2024 03:45P M DR BRITO Not available Not available Not available Nurse Visit 15 2024 09:30A [facility] Not available Not available Not available Lab CBC w/ auto diff 2024 025 [facility], [address] [place] [address], [place], [address], 07/30/2025 16:09:00 CMP, serum or plasma 2024 025 [facility], [address] [place] [address], [address], 07/30/2025 16:09:00 erythrocy te sedimenta tion rate by westergre n method 2024 025 [facility], [address] [place] [address], [address], 07/30/2025 16:09:00 TSH, serum or plasma 2024 025 [facility], [address] [place] [address], [address], 07/30/2025 16:09:00 vitamin B12, serum 2024 025 [facility], [address] [place] [address], [place], [address], 07/30/2025 16:09:00 Referral None recorded. Procedures None recorded. Surgeries None recorded. Imaging CT, head, w/o contrast 2024 025 [email or web address] [facility], [address] [place], [address], 07/30/2025 16:33:04 Medication Orders None recorded. Patient TargetsNo targets recorded. Patient Instructions Encounter Date Encounter Id Patient Instructions Last Modified By Organization Details Last Modified Time 07/30/2025 [id number] learning about a closed head injury Not available 07/30/2025 16:07:43 Reason for Referral None Reported. Problems Name Problem SNOMED Code Status Onset Date Resolution Date Notes Provider Name and Address Organization Details Recorded Time Irritable bowel syndrome 47642192 Active 2017 Not Available [facility] 20:36:58 Thyroid nodule 640131754 Active 2017 Not Available [facility] 20:36:58 Lyme disease 56503304 Active 02/2012 , 03/2009 Not Available [facility] 20:36:58 Fibromyal amanda 883834567 Active 2017 Not Available [facility] 20:36:58 Gastroeso phageal reflux disease 758863554 Active 2017 Not Available [facility] 20:36:58 Blanchard's esophagus 616578550 Active 2017 Not Available [facility] 20:36:58 Osteoarth ritis of shoulder region 39851111 Active 2017 Not Available [facility] 20:36:58 Hyperchol esterolem ia 56567410 Active 2017 Not Available [facility] 20:36:58 B12 deficienc y monitorin g status 508490532 Active 2017 Not Available [facility] 20:36:58 Degenerat ion of lumbar intervert ebral disc 11150775 Active 2017 Not Available [facility] 20:36:58 Pruritic rash 07505649 Active 2017 Not Available [facility] 20:36:58 Osteoporo sis 90489577 Active 2020 Not Available [facility] 20:36:58 Right lower quadrant pain 537916080 Active 2021 Jay Brito, DO [address] [place] [address], [address], [facility] 2 11:28:19 Right upper quadrant pain 657538723 Active 2021 Jay Brito DO [address] [place] [address], [address], [facility] 2 10:09:50 Pain of multiple joints 97495571 Active 2021 Jay Brito DO [address] [place] [address], [address], [facility] 2 13:18:40 Ataxia 46347741 Active 2021 Jay Brito DO [address] [place] [address], [address], [facility] 2 10:54:34 Pain of right shoulder joint 716364610470 17130 Active 2021 Jay Brito DO [address] [place] [address], [address], [facility] 2 10:06:55 Acute urinary tract infection 040183541 Active 2022 Jay Brito DO [address] [place] [address], [address], [facility] 3 14:51:10 Osteoarth ritis 228441540 Active 2022 STEPH MALIK [address] [place] [address], [address], [facility] 3 12:08:52 Muscle pain 73936991 Active 2022 Jay Brito, DO [address] [place] [address], [address], [facility] 3 14:16:45 Hypertens rohit disorder 26403232 Active 2022 Jay Brito, DO [address] [place] [address], [address], [facility] 3 14:20:24 Parapares is 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 Active 2023 Jay Brito, [address], [address], [facility] 4 14:59:13 Fatigue 36169565 Active 2023 Jay Brito, DO [address] [place] [address], [address], [facility] 4 09:14:13 Polymyalg ia rheumatic a 50323099 Active 2023 Jay Brito, DO [address] [place] [address], [address], [facility] 4 16:42:37 Fall Active 2023 STEPH MALIK [address] [place] [address], [address], [facility] 4 16:18:43 Wound of skin 319060540 Active 2023 STEPH MALIK [address] [place] [address], [address], [facility] 4 09:57:58 Celluliti s 693270603 Active 2023 Jay Brito, DO [address] [place] [address], [address], [facility] 4 09:31:50 Recurrent falls 325603838 Active 2023 STEPH MALIK [address] [place] [address], [address], [facility] 4 15:06:27 Abnormal gait 60965901 Active 2023 STEPH MALIK [address] [place] [address], [address], [facility] 4 10:35:32 Muscle weakness 50693595 Active 2023 STEPH MALIK [address] [place] [address], [address], [facility] 4 15:43:52 Tick bite 30972660 Active 2023 Jay Brito DO [address] [place] [address], [address], [facility] 4 10:01:05 Pain of right hip joint 211891126201 102 Active 2024 Jay Brito DO [address] [place] [address], [address], [facility] 5 10:01:20 Closed injury of head 976865703260 Active 2024 Jay Brito DO [address] [place] [address], [address], [facility] 5 16:06:15 Problem Notes None recorded. Procedures Surgical History Date Name Laterality Status Provider Name and Address Organization Details Recorded Time 024 Corticosteroid Injection completed Jay Brito DO [address] [place] [address], [address], [facility] 02/09/2024 09:30:34 023 Corticosteroid Injection completed Jay Brito DO [address] [place] [address], [address], [facility] 10/14/2022 14:15:02 019 Removal of Foreign Body completed Jay Brito DO [address] [place] [address], [address], [facility] 03/01/2019 13:39:00 Imaging Results None recorded. Procedure Notes None recorded. Medical Equipment None Reported. Allergies Allergen ID Allergen Name Allergen Category Reaction Reaction Severity Criticality Documentation Date Start Date Code Code System Note Provider Name and Address Organization Details Recorded Time 308 Iodinated contrast media (substanc e) medicatio n hives severe Not available 12/14/2017 79407 2004 [facility]ED [facility] 11:47[facility]51 309 Product containin g 3-hydroxy -3-methyl glutaryl- coenzyme A reductase inhibitor (product) medicatio n myalgias (muscle pain) Not available Not available 12/14/2017 92235 009 SNOMED Ama dobson [facility] 8 11:48:01 3729 nitrofura ntoin medicatio n diarrhea Not available Not available 11/24/2019 7454 RxNorm SAI WattsFLACO [address] [place], [address], [facility] 0 10:45:12 5245 Fosamax medicatio n nausea severe Not available 09/30/2021 09863 5 RxNorm Jay Brito, DO [address] [place], [address], [facility] 1 09:57:39 Medications Name Sig Start [...] LAYER TO ENTIRE BURN AREA BY TOPICALRO CRESENCIO 2 TIMES PER DAY 07/30 completed Not Available Not Available Not Available prednisone 10 mg tablet TAKE 1 TABLET BY MOUTH EVERY DAY FOR 14 DAYS 07/30 completed Not Available Not Available Not Available doxycycline hyclate 100 mg capsule TAKE 1 CAPSULE BY MOUTH TWICE A DAY FOR 10 DAYS 07/30 completed Not Available Not Available Not Available nabumetone 750 mg tablet TAKE 1 [...] BY MOUTH TWICE DAILY FOR 3 DAYS 07/30 completed Not Available Not Available Not Available tramadol 50 mg tablet TAKE 1 TABLET BY MOUTH EVERY 8 HOURS NEEDED FOR 10 DAYS 07/30 completed Not Available Not Available Not Available triamcinolo ne acetonide 0.1 % topical [...] RESERVE PILLS FOR FUTURE TICK BITES DIRECTED 07/30 completed Not Available Not Available Not Available cephalexin 500 mg capsule 07/30 completed Not Available Not Available Not Available cyanocobala min (vit B-12) 1,000 mcg/mL injection solution Inject 1 mL every month by subcutane ous route. 2024 active Not Available Not Available Not Avai lable clotrimazol e-betametha sone 1 %-0.05 % topical cream APPLY TOPICALLY TO THE AFFECTED AREA TWICE DAILY 07/30 completed Not Available Not Available Not Available omeprazole [...] TO AFFECTED AREA 3 TIMES A DAY 07/30 completed Not Available Not Available Not Available ibuprofen 600 mg tablet TAKE 1 TABLET BY MOUTH EVERY 6 HOURS NEEDED FOR PAIN active Not Available Not Available No t Available cefuroxime axetil 500 mg tablet 07/30 completed Not Available Not Available Not Available levofloxaci n 500 mg tablet 10/24 completed Not Available Not Available Not Available dicyclomine 10 mg capsule TAKE 1 CAPSULE BY MOUTH THREE TIMES DAILY NEEDED 07/30 completed Not Available Not Available Not Available oxycodone 5 mg tablet Take 1 tablet every 4-6 hours by oral route as needed for 14 days. 07/30 completed Not Available Not Available Not Available Oyster Shell Calcium-500 500 mg (as [...] completed Not Available Not Available Not Available Trelegy Ellipta 100 mcg-62.5 mcg-25 mcg powder for inhalation Inhale 1 puff every day by inhalatio n route. active Not Available Not Available No t Available Tylenol 325 mg capsule Take 1 capsule every 8 hours by oral route. 01/10 completed Not Available Not Available Not Available Vitals Date Recorded Body height Heart rate Oxygen saturation Oxygen saturation in Arterial blood by Pulse oximetry Systolic And Diastolic Provider Name and Address Organization Details Last Updated DateTime 5 160.02 cm 88 /min 96 % 96 % 166/100 mm[Hg] Shelley Ghotra [facility] 15:47:36 Social History Question Answer Notes LastModified by Organizat ion Details LastModified Time Tobacco Smoking Status Former Smoker 60 years ago [facility] 04/06/2018 08:57:36 What Was The Date Of Your Most Recent Tobacco Screening? 07/30/2025 [email or web address] Information not available 07/30/2025 Sex: Unknown Functional Status Question Answer Note LastModified by Organization D etails LastModified Time Do you or have you ever used any other forms of tobacco or nicotine? No [email or web address] Information not available 11/26/2023 Mental Status None recorded. Family History Nothing Reported. Medical History No medical history recorded. Gynecological HistoryNo gynecological history recorded. Obstetrics History GPAL:G 0 P 0 0 0 0 Immunizations Vaccine Type Date Status Note Provider Nam e and Address Organization Details Recorded Time Influenza, split virus, quadrivalent, preservative 07/03/20 21 [facility] 07/04/2021 13:55:17 COVID-19, mRNA, LNP-S, PF, 30 mcg/0.3 mL dose 11/22/19 21 [facility]/04/2021 08:33:43 COVID-19, mRNA, LNP-S, PF, 30 mcg/0.3 mL dose 12/14/19 21 completed Chanda dobson [facility] 08/04/2021 08:33:50 COVID-19, mRNA, LNP-S, PF, 30 mcg/0.3 mL dose 08/05/20 21 completed Jay Brito DO [address] [place] [address], [address], [facility] 08/07/2021 08:26:11 Influenza, split virus, quadrivalent, preservative 07/13/20 18 completed Not Available [facility] 05/18/2021 10:18:05 influenza, unspecified formulation 07/31/20 22 completed Jay Brito DO [address] [place] [address], [address], [facility] 08/28/2022 09:26:21 COVID-19, mRNA, LNP-S, PF, 30 mcg/0.3 mL dose 07/12/20 22 completed [facility] 11/04/2022 08:24:28 SARS-COV-2 (COVID-19) vaccine, UNSPECIFIED 06/22/20 24 completed Jay Brito DO [address] [place] [address], [address] 06/24/2024 14:15:33 Influenza, split virus, quadrivalent, preservative 07/01/20 19 completed Not Available [facility] 05/18/2021 10:18:05 zoster live 08/05/20 09 completed Not Available [facility] 05/18/2021 10:18:05 Pneumococcal conjugate PCV 13 05/01/20 15 completed Not Available [facility] 05/18/2021 10:18:05 pneumococcal polysaccharide PPV23 07/06/20 17 completed Not Available [facility] 05/18/2021 10:18:05 Influenza, split virus, quadrivalent, preservative 06/18/20 20 completed Not Available [facility] 05/18/2021 10:18:05 Past Encounters Encounter ID Performer Location Encounter Start Date Encounter Closed Date Diagnosis/Indication Diagnosis SNOMED-CT Code Diagnosis ICD10 Code Diagnosis IMO Codes Diagnosis [facility] [id number] [facility] [address] [place] [address] 07/02/2025 09:24:41 07/02/2025 13:18:28 Cobalamin deficiency 044120187 E53.8 [id number] [facility] [address] [place] [address] 07/25/2025 09:30:21 07/25/2025 11:26:33 Cobalamin deficiency 861892761 E53.8 [id number] [facility] [address] [address] 07/30/2025 14:58:10 07/30/2025 16:33:04 Depression screening 341538920 Z13.31 neg Hypertensive disorder 38 687359 I10 stable Closed injury of head 45 27484498 06 S09.90XA 6633399 Health Concerns Section Related Observation LastModified by Organization Detai ls LastModified Time None Recorded Concern Status LastModified by Organization Details LastModified Time None Recorded Payers Encounter Date Sequence Insurance Name Policy Number Policy Resendiz Covered Member ID Resendiz Member ID Guarantor Name 07/30/2025 1 [place] Katie Valdez [id number] Katie Valdez 07/30/2025 2 [facility] (MEDICARE SUPPLEMENT) [id number] Katie Valdez [id number] Katie Valdez Notes Date Note Type Note Provider Name and Address Organization Details Recorded Time 5 text/htm l Care Management - HypertensionReported by PatientHPIFor self care, patient reportsnot under emotional stress. For severity, patient reportssymptoms are improvinganddoes not interfere with daily activities. For associated symptoms, patient reportsno dizziness,no lightheadedness,no chest pain,no shortness of breath,no palpitations,no edema,no calf muscle cramps,no blurred vision,no confusion,no headaches, andno fatigue.ROS as noted in the HPI fell getting out of bed 10 days agono injury and feels legs are weaker nowalso states that she feels that her memory is lapsing she has noticed this since the fall Jay Brito, DO [address] [facility], [place], [address], [facility] 07/30/2025 16:13:47 OBGyn Episode No OBEpisode recorded.
--- OUTSIDE RECORDS SUMMARY | 2025-07-30 20:32 | XMS_ITS | Encounter Summary ---
Author Organization [facility] Address [address] [place] [address] Phone Care Team Providers Care Machine Operator Helper Name Role Phone Nbaaly Jay Gunn DO Primary Care Provider [phone] Jay Walker DO Unavailable Kelly Art MD Unavailable [phone] Jc Saleh MD Unavailable Padmaja Felipe METAL MOLD DRESSER Unavailable [phone] Tiago Henry MD Unavailable [phone] Zenaida Bonilla PA-C Unavailable [phone] Fatoumata Grewal MD Unavailable [phone] Kailyn Jaimes METAL MOLD DRESSER Unavailable Reason for Referral * Physical Therapy (Routine) - Closed Specialty Diagnoses / Procedures Referred By Danielle diego Referred To Contact Physical Therapy Diagnoses Encounter for rehabilitation System, Provider Not In, [facility] [id number] [place] [address] Phone: tel: Referral ID Status Reason Start Date Expiration Date Visits Re quested Visits Authorized [id number] Closed 02/01/2018 10/10/2018 99 99 Encounter Details Date Type Department Care Team (Latest Contact Info) Description 02/01/2018 Transcribe Orders [facility] [address] [place] [address] Alisia Fernando NP [address] [place] [phone] [email or web address] Encounter for rehabilitation (Primary Dx) Social History Tobacco Use Types Packs/Day Years Used Date Smoking Tobacco: Never Assessed Comments Unknown Sex and Gender Information Value Date Recorded Sex Assigned at Not on file Legal Sex Female 10:10 PM EDT Gender Identity Not on file Sexual Orientation Not on file documented as of this encounter Plan of Treatment Scheduled Referrals Name Type Priority Associated Diagnoses Orde r Schedule Ambulatory referral to [facility] Physical Therapy Outpatient Referral Routine Encounter for rehabilitation Ordered: 02/01/2018 documented as of this encounter Visit Diagnoses Diagnosis Encounter for rehabilitation- Primary documented in this encounter Additional Health Concerns Infection Onset Date Last Indicated Resolved Time CoV-Risk Comment:Per Ambulatory Triage Form 03/23/2022 03/23/202204/03 1:24 AM EDT documented as of this encounter Care Teams Machine Operator Helper Relationship Specialty Start Date End Date Jay Walker DO PCP - General 07/29/17 Jay Walker DO Historical LMR Provider 07/31/17 Kelly Art MD [address] [place] [address] Historical LMR Provider 07/31/17 Jc Saleh MD [address] [place] [address] [email or web address] Historical LMR Provider 07/31/17 10/18/21 Padmaja Felipe NP [address] [place] [address] [email or web address] Historical LMR Provider 07/31/17 Tiago Henry MD [address] [place] [address] [email or web address] Historical LMR Provider 07/31/17 10/18/21 Zenaida Bonilla PA-C [address] [place] [address] Orthopedics & Sports Medicine, [place] [address] [email or web address] Historical LMR Provider 07/31/17 10/18/21 Fatoumata Grewal MD [address], [place] [address] Historical LMR Provider 07/31/17 2 Kailyn Jaimes NP [address] [place] [address] Historical LMR Provider 07/31/17 2 documented as of this encounter Additional Source Comments The information contained in this document represents components of the legal health record. It is not the complete legal health record.[facility]
--- OUTSIDE RECORDS SUMMARY | 2025-07-30 20:32 | XMS_ITS | Encounter Summary ---
Author Organization [facility] Address [address] [place] [address] Phone Care Team Providers Care Shelf Filler Name Role Phone Jay Walker DO Primary Care Provider [phone] Jay Walker DO Unavailable Padmaja Felipe TRAVEL TICKETING REVIEWER Unavailable [phone] Encounter Details Date Type Department Care Team (Late st Contact Info) Description 01/09/2022 Procedure Pass [facility], Ct Scan - [address] [address] Social History Tobacco Use Types Packs/Day Years [...] Diagnoses Not on filedocumented in this encounter Additional Health Concerns Infection Onset Date Last Indicated Resolved Time CoV-Risk Comment:Per Ambulatory Triage Form 03/23/2022 03/23/202204/03 1:24 AM EDT documented as of this encounter Care Teams Shelf Filler Relationship Specialty Start Date End Date Jay Walker DO [email or web address] PCP - General 07/29/17 Jay Walker DO [email or web address] Historical LMR Provider 07/31/17 Padmaja Felipe NP [address] [place] [address] [email or web address] Historical LMR Provider 07/31/17 documented as of this encounter Additional Source Comments The information contained in this document represents components of the legal health record. It is not the complete legal health record.[facility]
--- OUTSIDE RECORDS SUMMARY | 2025-07-30 20:33 | XMS_ITS | Encounter Summary ---
Author Organization [facility] Address [address] [place] [address] Phone Care Team Providers Care Cook Helper Fruit Name Role Phone Nbaaly Jay Gunn DO Primary Care Provider [phone] Jay Walker DO Unavailable Kelly Art MD Unavailable [phone] Jc Saleh MD Unavailable Padmaja Felipe AIRLINE RADIO OPERATOR Unavailable [phone] Tiago Henry MD Unavailable [phone] Zenaida Bonilla PA-C Unavailable [phone] Fatoumata Grewal MD Unavailable [phone] Kailyn Jaimes AIRLINE RADIO OPERATOR Unavailable Reason for Referral * MRI/CAT Scan - Closed Specialty Diagnoses / Procedures Referred By Danielle t Referred To Contact Radiology Diagnoses Diverticulitis of intestine without perforation or abscess without bleeding, unspecified part of intestinal tract Procedures CT Abdomen/Pelvis Kelly Alcaraz PA Phone: tel: fax: Referral ID Status Reason Start Date Expiration Date Visits Re quested Visits Authorized [id number] Closed 12/27/2020 12/27/2021 1 1 Encounter Details Date Type Department Care Team (Latest Contact Info) Description 12/27/2020 Transcribe Orders Virtual Department [address] [place] [address] Kelly Alcaraz PA 6 [facility] [place] [address] [place] [address] Diverticulitis of intestine without perforation or abscess without bleeding, unspecified part of intestinal tract (Primary Dx) Social History Tobacco Use Types [...] documented as of this encounter Results * CT ABDOMEN/PELVIS WITHOUT CONTRAST (01/03/2021 10:01 AM EDT) Anatomical Region Laterality Modality Abdomen, Pelvis Computed Tomogra phy 01/03/2021 10:1 9 AM EDT Impressions 01/03/2021 10:30 AM EDT Moderate mid and distal colonic stool which could be correlated with any clinical findings of constipation. Minimal free fluid in the dependent portion the pelvis, non-specific without overt diverticulitis or other acute intra-abdominal or retroperitoneal pathology identified on this non-contrast study. TOTAL CTDIvol: mGy POS - [id number] Narrative 01/03/2021 10:30 AM EDT COMPARISON: 04/30/[address] in 02/03/2016 renal ultrasound TECHNIQUE: Helical scanning was performed from the dome of the liver through the inferior pubic rami following oral but without IV administration of contrast material due to reported allergy. Sagittal and coronal reformats generated. Automated exposure control utilized. FINDINGS: There is a small chronic cyst versus hemangioma along the periphery of the right hepatic lobe. Liver otherwise within normal limits for the non-contrast state as are the spleen and adrenal glands. No pancreatic enlargement or peripancreatic inflammatory changes are present. The right kidney is chronically rotated upon its short axis. No hydronephrosis or perinephric stranding. There are chronic bilateral renal cortical cysts. No urinary calculi detected. Bladder is collapsed. There is no evidence of small bowel obstruction. A moderate amount of stool is present in the mid and distal colon. No paracolic inflammatory changes are identified. There is a trace amount non-specific free fluid in the dependent portion of the pelvis. No bowel containing abdominal wall hernia. No grossly enlarged para-aortic, iliac chain, or inguinal lymph nodes are detected. No aortoiliac aneurysm. Patient is status-post hysterectomy. 55 no acute infiltrate or pleural effusion seen at the lung bases. Small left posterior hemidiaphragmatic hernia incidentally noted. Degenerative changes are present in the thoracolumbar spine. No traumatic or destructive skeletal lesions are seen. Procedure Note Delvis Nieto MD - 01/03/2021 COMPARISON: 04/30/[address] in 02/03/2016 renal ultrasound TECHNIQUE: Helical scanning was performed from the dome of the liverthrough the inferior pubic rami following oral but without IVadministration of contrast material due to reported allergy. Sagittal andcoronal reformats generated. Automated exposure control utilized. FINDINGS: There is a small chronic cyst versus hemangioma along the periphery ofthe right hepatic lobe. Liver otherwise within normal limits for thenon-contrast state as are the spleen and adrenal glands. No pancreaticenlargement or peripancreatic inflammatory changes are present. The right kidney is chronically rotated upon its short axis. Nohydronephrosis or perinephric stranding. There are chronic bilateral renalcortical cysts. No urinary calculi detected. Bladder is collapsed. There is no evidence of small bowel obstruction. A moderate amount ofstool is present in the mid and distal colon. No paracolic inflammatorychanges are identified. There is a trace amount non-specific free fluid inthe dependent portion of the pelvis. No bowel containing abdominal wallhernia. No grossly enlarged para-aortic, iliac chain, or inguinal lymph nodes aredetected. No aortoiliac aneurysm. Patient is status-post hysterectomy. 55 no acute infiltrate or pleural effusion seen at the lung bases. Smallleft posterior hemidiaphragmatic hernia incidentally noted. Degenerativechanges are present in the thoracolumbar spine. No traumatic ordestructive skeletal lesions are seen. IMPRESSION: Moderate mid and distal colonic stool which could be correlated with anyclinical findings of constipation. Minimal free fluid in the dependentportion the pelvis, non-specific without overt diverticulitis or otheracute intra-abdominal or retroperitoneal pathology identified on thisnon-contrast study. TOTAL CTDIvol: mGy POS - [id number] Kelly CHOI IMG CT ABD/PELVIS Final Res ult documented in this encounter Visit Diagnoses Diagnosis Diverticulitis of intestine without perforation or abscess without bleeding, unspecified part of intestinal tract- Primary Diverticulitis of intestine without perforation or abscess without bleeding, unspecified part of intestinal tract documented in this encounter Additional Health Concerns Infection Onset Date Last Indicated Resolved Time CoV-Risk Comment:Per Ambulatory Triage Form 03/23/2022 03/23/202204/03 1:24 AM EDT documented as of this encounter Care Teams Cook Helper Fruit Relationship Specialty Start Date End Date Jay Walker DO PCP - General 07/29/17 Jay Walker DO Historical LMR Provider 07/31/17 Kelly Art MD [address] [place] [address] Historical LMR Provider 07/31/17 Jc Saleh MD [address] [place] [address] [email or web address] Historical LMR Provider 07/31/17 10/18/21 Padmaja Felipe NP [address] [place] [address] [email or web address] Historical LMR Provider 07/31/17 Tiago Henry MD [facility] [place] [address] [email or web address] Historical LMR Provider 07/31/17 10/18/21 Zenaida Bonilla PA-C [address] [place] [address] Orthopedics [facility] Sports Medicine, [place] [address] Historical LMR Provider 07/31/17 10/18/21 Fatoumata Grewal MD [address], [place] [address] Historical LMR Provider 07/31/17 2 Kailyn Jaimes NP [address] [place] [address] Historical LMR Provider 07/31/17 2 documented as of this encounter Additional Source Comments The information contained in this document represents components of the legal health record. It is not the complete legal health record.[facility]
--- OUTSIDE RECORDS SUMMARY | 2025-07-30 20:33 | XMS_ITS | Encounter Summary ---
Author Organization [facility] Address [address] [place] [address] Phone Care Team Providers Care Logging Shovel Operator Name Role Phone Jay Walker Primary Care Provider [phone] Nbaaly Jya Gunn DO Unavailable Kelly Art MD Unavailable [phone] Jc Saleh MD Unavailable Padmaja Felipe IN STORE MARKETER Unavailable [phone] Tiago Henry MD Unavailable [phone] Zenaida Bonilla PA-C Unavailable [phone] Fatoumata Grewal MD Unavailable [phone] FionaKailyn fatima IN STORE MARKETER Unavailable Encounter Details Date Type Department Care Team (Latest Contact Info) Description 08/10/2017 Transcribe Orders [facility], X-Ray - [address] [address] Oksana Stewart, FLIGHT TEST SHOP MECHANIC [address] [place], [place] [id number] Acute pain of right knee (Primary Dx); Left foot pain Social History Tobacco Use Types Packs/Day Years Used Date Smoking Tobacco: Never Assessed Comments Unknown Sex and Gender Information Value Date Recorded Sex Assigned at Not on file Legal Sex Female 10:10 PM EDT Gender Identity Not on file Sexual Orientation Not on file documented as of this encounter Plan of Treatment Not on file documented as of this encounter Results * XR KNEE 4 OR MORE VIEWS (RIGHT) (08/10/2017 9:16 AM EDT) Anatomical Region Laterality Modality Knee Right Radiographic Damaris ging 08/10/2017 9:21 AM EDT Impressions 08/10/2017 9:22 AM EDT No acute fracture. POS - [id number] Narrative 08/10/2017 9:22 AM EDT HISTORY: As above. COMPARISON: None. RIGHT KNEE RADIOGRAPH FINDINGS: 4 views obtained. There is no acute fracture or malalignment. Joint spaces are maintained. No destructive bone lesions. No joint effusion or acute soft tissue findings. Procedure Note Liam Sellers MD - 08/10/2017 HISTORY: As above. COMPARISON: None. RIGHT KNEE RADIOGRAPH FINDINGS: 4 views obtained. There is no acute fracture or malalignment. Jointspaces are maintained. No destructive bone lesions. No joint effusion oracute soft tissue findings. IMPRESSION: No acute fracture. POS - [id number] Oksana H Terry FLIGHT TEST SHOP MECHANIC IMG XR LOWER EXTREMITY Mague l Result * XR FOOT 3 OR MORE VIEWS (LEFT) (08/10/2017 9:14 AM EDT) Anatomical Region Laterality Modality Foot Left Radiographic Damaris ging 08/10/2017 9:22 AM EDT Impressions 08/10/2017 9:24 AM EDT No acute fracture. Stable degenerative changes and osteopenia. POS - [id number] Narrative 08/10/2017 9:24 AM EDT HISTORY: As above. COMPARISON: 08/23/2007. LEFT FOOT RADIOGRAPH FINDINGS: 4 views obtained. Stable osteopenia. No acute fracture. Stable moderate hallux valgus deformity and mild first MTP joint space narrowing, adjacent bunion and small degenerative cysts in the first metatarsal head. No destructive bone lesions or AVN. No soft tissue swelling. Procedure Note Liam Sellers MD - 08/10/2017 HISTORY: As above. COMPARISON: 08/23/2007. LEFT FOOT RADIOGRAPH FINDINGS: 4 views obtained. Stable osteopenia. No acute fracture. Stable moderatehallux valgus deformity and mild first MTP joint space narrowing, adjacentbunion and small degenerative cysts in the first metatarsal head. Nodestructive bone lesions or AVN. No soft tissue swelling. IMPRESSION: No acute fracture. Stable degenerative changes and osteopenia. POS - [id number] us Oksana Stewart FLIGHT TEST SHOP MECHANIC IMG XR LOWER EXTREMITY Mague l Result documented in this encounter Visit Diagnoses Diagnosis Acute pain of right knee- Primary Left foot pain Pain in soft tissues of limb Acute pain of right knee Left foot pain Pain in soft tissues of limb documented in this encounter Additional Health Concerns Infection Onset Date Last Indicated Resolved Time CoV-Risk Comment:Per Ambulatory Triage Form 03/23/2022 03/23/202204/03 1:24 AM EDT documented as of this encounter Care Teams Logging Shovel Operator Relationship Specialty Start Date End Date Jay Walker DO PCP - General 07/29/17 Jay Walker DO Historical LMR Provider 07/31/17 Kelly Art MD [address] [place] [address] Historical LMR Provider 07/31/17 Jc Saleh MD [address] [place] [address] [email or web address] Historical LMR Provider 07/31/17 10/18/21 Padmaja Felipe NP [address] [place] [address] [email or web address] Historical LMR Provider 07/31/17 Tiago Henry MD [address] [place] [address] [email or web address] Historical LMR Provider 07/31/17 10/18/21 Zenaida Bonilla PA-C [address] [place] [address] Orthopedics [facility] Sports Medicine, [place] [address] [email or web address] Historical LMR Provider 07/31/17 10/18/21 Fatoumata Grewal MD [address] [address] Historical LMR Provider 07/31/17 2 Kailyn Jaimes NP [address] [place] [address] Historical LMR Provider 07/31/17 2 documented as of this encounter Additional Source Comments The information contained in this document represents components of the legal health record. It is not the complete legal health record.[facility]
--- OUTSIDE RECORDS SUMMARY | 2025-07-30 20:33 | XMS_ITS | Encounter Summary ---
Author Organization [facility] Address [address] [place] [address] Phone Care Team Providers Care Spanish Speaking Babysitter Name Role Phone Jay Walker Primary Care Provider [phone] Aaron Jay Gunn DO Unavailable Kelly Art MD Unavailable [phone] Jc Saleh MD Unavailable Padmaja Felipe STRUCTURES ASSEMBLER Unavailable [phone] Tiago Henry MD Unavailable [phone] Zenaida Bonilla PA-C Unavailable Fatoumata Grewal MD Unavailable [phone] Kailyn Jaimes STRUCTURES ASSEMBLER Unavailable Encounter Details Date Type Department Care Team (Late st Contact Info) Description 12/27/2020 Procedure Pass [facility], Ct Scan - [address] [address] Social History Tobacco Use Types Packs/Day Years [...] documented as of this encounter Care Teams Spanish Speaking Babysitter Relationship Specialty Start Date End Date Jay WalkerDO PCP - General 07/29/17 Jay Walker DO Historical LMR Provider 07/31/17 Kelly Art MD [address] [place] [address] Historical LMR Provider 07/31/17 Jc Saleh MD [address] [place] [address] [email or web address] Historical LMR Provider 07/31/17 10/18/21 Padmaja Felipe STRUCTURES ASSEMBLER [address] [place] [address] [email or web address] Historical LMR Provider 07/31/17 Tiago Henry MD [address] [place] [address] [email or web address] Historical LMR Provider 07/31/17 10/18/21 Zenaida Bonilla PA-C [address] [place] [address] Orthopedics [facility] Sports Medicine, [place] [address] [email or web address] Historical LMR Provider 07/31/17 10/18/21 Fatoumata Grewal MD [facility] [place] [address] Historical LMR Provider 07/31/17 2 Kailyn Jaimes NP [address] [place] [address] Historical LMR Provider 07/31/17 2 documented as of this encounter Additional Source Comments The information contained in this document represents components of the legal health record. It is not the complete legal health record.[facility]
--- OUTSIDE RECORDS SUMMARY | 2025-07-30 20:33 | XMS_ITS | Encounter Summary ---
Author Organization [facility] Address [address] [place] [address] Phone Care Team Providers Care Maintenance Mechanic Elevators Name Role Phone Jay Walker DO Primary Care Provider Jay Walker DO Unavailable Kelly Art MD Unavailable [phone] Jc Saleh MD Unavailable Padmaja Felipe NEWS ASSIGNMENT EDITOR Unavailable [phone] Tiago Henry MD Unavailable [phone] Zenaida Bonilla PA-C Unavailable [phone] Fatoumata Grewal MD Unavailable [phone] Kailyn Jaimes NEWS ASSIGNMENT EDITOR Unavailable Encounter Details Date Type Department Care Team (Late st Contact Info) Description 07/31/2017 Ancillary Orders [facility], X-Ray - [facility] [address] [place] [address] Jay Walker DO [address] [facility] [place] [address] Visit for screening mammogram Social History Tobacco Use Types Packs/Day Years Used Date Smoking Tobacco: Never Assessed Comments Unknown Sex and Gender Information Value Date Recorded Sex Assigned at Not on file Legal Sex Female 10:10 PM EDT Gender Identity Not on file Sexual Orientation Not on file documented as of this encounter Plan of Treatment Not on file documented as of this encounter Visit Diagnoses Diagnosis Visit for screening mammogram documented in this encounter Additional Health Concerns Infection Onset Date Last Indicated Resolved Time CoV-Risk Comment:Per Ambulatory Triage Form 03/23/2022 03/23/202204/03 1:24 AM EDT documented as of this encounter Care Teams Maintenance Mechanic Elevators Relationship Specialty Start Date End Date Jay Walker DO [email or web address] PCP - General 07/29/17 Jay Walker DO [email or web address] Historical LMR Provider 07/31/17 Kelly Art MD [address] [place] [address] Historical LMR Provider 07/31/17 Jc Saleh MD [address] [place] [phone] [email or web address] Historical LMR Provider 07/31/17 10/18/21 Padmaja Felipe NP [address] [place] [address] [email or web address] Historical LMR Provider 07/31/17 Tiago Henry MD [address] [place] [address] [email or web address] Historical LMR Provider 07/31/17 10/18/21 Zenaida Bonilla PA-C [address] [place] [address] Orthoped[facility] Sports Medicine, [place] [address] [email or web address] Historical LMR Provider 07/31/17 10/18/21 Fatoumata Grewal MD [address] [place] [address] Historical LMR Provider 07/31/17 2 Kailyn Jaimes NP [address] [place] [address] Historical LMR Provider 07/31/17 2 documented as of this encounter Additional Source Comments The information contained in this document represents components of the legal health record. It is not the complete legal health record.[facility]
--- OUTSIDE RECORDS SUMMARY | 2025-07-30 20:33 | XMS_ITS | Encounter Summary ---
Author Organization [facility] Address [address] [place] [id number] Phone Care Team Providers Care Chief Pharmacist Name Role Phone Jay Walker DO Primary Care Provider [phone] Jay Walker DO Unavailable Padmaja Felipe [employer] ASSOCIATE ATTORNEY Unavailable [phone] Encounter Details Date Type Department Care Team (Late st Contact Info) Description 12/11/2024 Ancillary Orders [facility], X-Ray - [facility] [address] [place] [address] Jay Walker DO [address] [facility] [place] [address] [place] [address] [email or web address] Right hip pain (Primary Dx) Social History Tobacco Use [...] as of this encounter Results * XR HIP 2 VW RIGHT PLUS PELVIS (12/11/2024 11:29 AM EST) Anatomical Region Laterality Modality Hip Right Computed Radiogr aphy 12/11/2024 3:47 PM EST Impressions 12/11/2024 3:47 PM EST No evidence of acute, displaced fracture or dislocation within the right hip. Mild to moderate bilateral hip osteoarthritis with mild osteophytic remodeling and mild to moderate joint space narrowing. Qualitative osteopenia. Mild degenerative changes of the sacroiliac joints. Narrative 12/11/2024 3:47 PM EST XR HIP 2 VW RIGHT PLUS PELVIS Referring clinician's provided indication for this examination in [facility]: Pain COMPARISON: None Procedure Note Edinson Santa MD - 12/11/2024 XR HIP 2 VW RIGHT PLUS PELVIS Referring clinician's provided indication for this examination in Epic:Pain COMPARISON: None IMPRESSION: No evidence of acute, displaced fracture or dislocation within the righthip. Mild to moderate bilateral hip osteoarthritis with mild osteophyticremodeling and mild to moderate joint space narrowing. Qualitativeosteopenia. Mild degenerative changes of the sacroiliac joints. us Jay A Bigda DO IMG XR PELVIS Final Result documented in this encounter Visit Diagnoses Diagnosis Right hip pain- Primary Pain in joint, pelvic region and thigh Right hip pain Pain in joint, pelvic region and thigh documented in this encounter Care Teams Chief Pharmacist Relationship Specialty Start Date End Date Jay Walker DO [email or web address] PCP - General 07/29/17 Jay Walker DO [email or web address] Historical LMR Provider 07/31/17 Padmaja Felipe NP [address] [place] [address] [email or web address] Historical LMR Provider 07/31/17 documented as of this encounter Additional Source Comments The information contained in this document represents components of the legal health record. It is not the complete legal health record.[facility]
== END 2025-07-30 16:15 | disposition home or self-care (01) ==
LOC: HO.MANLDS 16:14
PROVIDERS: Visit Provider Internal Medicine
DX: S09.90XD Unspecified injury of head, subsequent encounter (principal)
CPT/HCPCS: 36415; 80053; 82607; 84443; 85025; 85652